=== PATIENT | male | born 1960 | race Caucasian/White ===

== ENCOUNTER 2022-11-19 10:45 | Emergency (ER) | payer SELFPAY ==
[2022-11-19 10:50] VITALS: BP 128/88; PULSE 67; RESP 18; TEMP 36.7; O2SAT 98; BMI 20.7
--- NOTE | 2022-11-19 11:06 | ECG_ITS ---
The [facility] Test Date: 2022-11-19 Pat Name: LUDIVINA LÓPEZ Department: Room: - Gender: Male Health Underwriter: : 1960 Requested By: Order Number: [id number] Reading MD: GREGORY CUNNINGHAM Measurements Intervals [place] Rate: 62 P: 77 MT: 164 QRS: 64 QRSD: 88 T: 67 QT: 426 QTc: 431 Interpretive Statements 1100 Sinus rhythm 3114 Cannot rule out anterior myocardial infarction, age undetermined 9150 abnormal ECG No previous ECG available for comparison Electronically Signed On 11-21-2022 7:15:08 EDT by GREGORY CUNNINGHAM
[2022-11-19 11:21] VITALS: BP 126/81; BP 128/88; BP 138/84; PULSE 65; PULSE 68
[2022-11-19 11:25] LABS: Basophils Absolute Auto 0.1 10^3/uL (0.0-0.1); Basophils Percent Auto 0.6 % (0.2-2.0); Eosinophils Absolute Auto 0.2 10^3/uL (0.0-0.7); Eosinophils Percent Auto 1.9 % (0.9-7.0); Hematocrit 48.3 % (42.0-54.0); Hemoglobin 16.4 g/dL (14.0-18.0); Immature Granulocytes Abs Auto 0.03 10^3/uL (0.00-0.03); Immature Granulocytes Pct Auto 0.4 % (0.0-0.5); Lymphocytes Absolute Auto 1.4 10^3/uL (1.2-3.8); Lymphocytes Percent Auto 18.2 % (20.5-60.0); Mean Corpuscular Hemoglobin 34.1 pg (25.9-34.0); Mean Corpuscular Volume 100.4 fL (80.0-94.0); Monocytes Absolute Auto 0.9 10^3/uL (0.3-0.8); Monocytes Percent Auto 11.5 % (1.7-12.0); Neutrophils Absolute Auto 5.3 10^3/uL (1.4-6.5); Neutrophils Percent Auto 67.4 % (43.0-75.0); Platelet Count 206 10^3/uL (150-450); Red Blood Count 4.81 10^6/uL (4.70-6.10); Red Cell Distribution Width 15.6 % (11.0-15.0); White Blood Count 7.9 10^3/uL (4.0-11.0)
[2022-11-19 11:37] LABS: Alanine Aminotransferase 7 U/L (16-63); Albumin Globulin Ratio 1.1; Albumin Level 3.6 g/dL (3.4-5.0); Alkaline Phosphatase 89 U/L (46-116); Anion Gap 11.4; Aspartate Amino Transferase 16 U/L (15-37); BUN Creatinine Ratio 20.4; Bilirubin Total 1.8 mg/dL (0.2-1.0); Calcium 8.5 mg/dL (8.5-10.1); Carbon Dioxide 29.8 mmol/L (21.0-32.0); Chloride 102 mmol/L (98-107); Estimated GFR (African America >60 (>=60); Estimated GFR (Non-African Ame >60 (>=60); Globulin 3.2 g/dL; Glucose 94 mg/dL (74-106); Potassium 4.2 mmol/L (3.5-5.1); Sodium 139 mmol/L (136-145); Total Protein 6.8 g/dL (6.4-8.2)
--- NOTE | 2022-11-19 11:37 | ED.DIZZY1 ---
HPI - Dizziness General Chief Complaint: Dizziness Stated Complaint: DIZZINESS/HEAD SPINNING Time Seen by Provider: 11/19/22 10:55 Source: patient Mode of arrival: walk-in Limitations: no limitations History of Present Illness HPI Narrative: patient had been off of his BP meds for years. he started to experience dizziness and had episodes of intense spinning and occasionally thought he might pass out. He went to his PCP's office, saw one of the PCP's partners and was restarted on his BP meds. He came in a week later and saw his PCP. When he discussed the dizzy episodes, his PCP told him that he needed to go directly to the ER and be evaluated. The patient told her he had no insurance and did not want to go to the ER. For some reason, he decided to come to the ED today. His dizziness has decreased since re-starting the BP meds. Related Data Home Medications Medication Instructions Recorded Confirmed amlodipine 5 mg tablet 5 mg PO DAILY 11/19/22 11/19/22 doxycycline hyclate 100 mg tablet 100 mg PO Q12H 11/19/22 11/19/22 hydrocortisone 2.5 % topical cream 1 applic topical BID 11/19/22 11/19/22 metoprolol tartrate 25 mg tablet 25 mg PO Q12H 11/19/22 11/19/22 Allergies Allergy/AdvReac Type Severity Reaction Status Date / Time No Known Drug Allergies Allergy Verified 11/19/22 11:00 [facility] Social History Smoking status: Current every day smoker Exam Narrative Exam Narrative: Nurses notes and vital signs reviewed and patient is not hypoxic. afebrile General: Well-appearing and in no apparent distress. Skin: Warm, dry, no pallor noted. Head: Normocephalic, atraumatic. Neck: Supple, non-tender. Eye: Pupils are equal, round and EOMI. No nystagmus. Ears, Nose, Mouth, and Throat: Both TMs and EACs are clear, no nasal mucosal hypertrophy. Oral mucosa is moist, no posterior oropharynx erythema, uvula is mid-line Cardiovascular: Regular Rate and Rhythm without murmur, gallop or rub. Respiratory: No accessory muscle use or respiratory distress. Lungs are clear to auscultation, no wheezing, rales or rhonchi Musculoskeletal: normal ROM, no calf or popliteal tenderness, no lower extremity edema/swelling GI: Abdomen is soft, non-distended. Normal bowel sounds. No masses appreciated. No tenderness to palpation. No rebound, guarding, or rigidity noted. Neurological: A&O x4. No cranial nerve dysfunction observed. No truncal ataxia. Moves all extremities. Sensation intact. head movement does not result in dizziness at this time. Psychiatric: Cooperative and interactive. Normal mood and affect. Constitutional Vital Signs, click to edit/add: Last Vital Signs Temp 98.0 F 11/19/22 10:50 Pulse 65 11/19/22 11:21 Resp 18 11/19/22 10:50 BP 128/88 11/19/22 11:21 Pulse Ox 98 11/19/22 10:50 O2 Del Method Room Air 11/19/22 10:50 Course Vital Signs Vital signs: Vital Signs Temperature 98.0 F 11/19/22 10:50 Pulse Rate 67 11/19/22 10:50 Respiratory Rate 18 11/19/22 10:50 Blood Pressure 128/88 11/19/22 10:50 Pulse Oximetry 98 11/19/22 10:50 Oxygen Delivery Method Room Air 11/19/22 10:50 Temperature 98.0 F 11/19/22 10:50 Pulse Rate 65 11/19/22 11:21 Respiratory Rate 18 11/19/22 10:50 Blood Pressure 128/88 11/19/22 11:21 Pulse Oximetry 98 11/19/22 10:50 Oxygen Delivery Method Room Air 11/19/22 10:50 MDM - Dizziness MDM Narrative Medical decision making narrative: Patient was placed on library monitor and EKG obtained. Blood drawn and sent for evaluation. orthostatic vital signs were obtained and were negative. Workup notable only for slightly elevated BUN at 19. Encouraged the patient to drink plenty of water daily, take his BP meds as prescribed and follow up with his PCP. Differential Diagnosis Differential diagnosis: Likely benign paroxysmal positional vertigo, orthostatic hypotension, vertebral basilar insufficiency, cerebrovascular accident, acute vestibular neuronitis and transient cerebral ischemia Lab Data Attestation: I reviewed the patient's lab results. Labs: Lab Results 11/19/22 Range/Units 11:14 WBC 7.9 (4.0-11.0) 10^3/uL RBC 4.81 (4.70-6.10) 10^6/uL Hgb 16.4 (14.0-18.0) g/dL Hct 48.3 (42.0-54.0) % MCV 100.4 H (80.0-94.0) fL MCH 34.1 H (25.9-34.0) pg MCHC 34.0 (29.9-35.2) g/dL RDW 15.6 H (11.0-15.0) % Plt Count 206 (150-450) 10^3/uL MPV 9.0 L (9.5-13.5) fL Neut % (Auto) 67.4 (43.0-75.0) % Lymph % (Auto) 18.2 L (20.5-60.0) % [place] % (Auto) 11.5 (1.7-12.0) % Eos % (Auto) 1.9 (0.9-7.0) % Baso % (Auto) 0.6 (0.2-2.0) % Neut # (Auto) 5.3 (1.4-6.5) 10^3/uL Lymph # (Auto) 1.4 (1.2-3.8) 10^3/uL [place] # (Auto) 0.9 H (0.3-0.8) 10^3/uL Eos # (Auto) 0.2 (0.0-0.7) 10^3/uL Baso # (Auto) 0.1 (0.0-0.1) 10^3/uL Abs Immat Gran (auto) 0.03 (0.00-0.03) 10^3/uL Imm/Tot Granulo (auto) 0.4 (0.0-0.5) % Sodium 139 (136-145) mmol/L Potassium 4.2 (3.5-5.1) mmol/L Chloride 102 (98-107) mmol/L Carbon Dioxide 29.8 (21.0-32.0) mmol/L Anion Gap 11.4 BUN 19.0 H (7.0-18.0) mg/dL Creatinine 0.93 (0.70-1.30) mg/dL Est GFR ( Amer) >60 (>=60) Est GFR (Non-Af Amer) >60 (>=60) BUN/Creatinine Ratio 20.4 Glucose 94 (74-106) mg/dL Calcium 8.5 (8.5-10.1) mg/dL Total Bilirubin 1.8 H (0.2-1.0) mg/dL AST 16 (15-37) U/L ALT 7 L (16-63) U/L Alkaline Phosphatase 89 (46-116) U/L Total Protein 6.8 (6.4-8.2) g/dL Albumin 3.6 (3.4-5.0) g/dL Globulin 3.2 g/dL Albumin/Globulin Ratio 1.1 ECG Data Attestation: I personally reviewed and interpreted this ECG as follows: Interpretation: EKG interpretation: Emergency Department physician interpretation. Normal sinus rhythm at 62bpm. Normal axis, normal intervals and no ST segment elevation or depression. Discharge Plan Discharge Chief Complaint: Dizziness Clinical Impression: Dizziness, Hypertension Patient Disposition: Home, Self-Care Time of Disposition Decision: 12:19 Prescriptions / Home Meds: No Action amlodipine 5 mg tablet 5 mg PO DAILY doxycycline hyclate 100 mg tablet 100 mg PO Q12H hydrocortisone 2.5 % cream 1 applic TOPICAL BID metoprolol tartrate 25 mg tablet 25 mg PO Q12H Instructions: Hypertension (ED), Dizziness (ED) Stand Alone Forms: Portal Instructions Referrals: Physician,Non-Staff, MD [Primary Care Provider] - 1 week
== END 2022-11-19 12:40 | disposition home or self-care (01) ==
PROVIDERS: Emergency Provider Emergency Medicine
DX: R42 Dizziness and giddiness (principal); I10 Essential (primary) hypertension; Z79.899 Other long term (current) drug therapy; F17.210 Nicotine dependence, cigarettes, uncomplicated
CPT/HCPCS: 36415; 80053; 85025; 93005; 99284

== ENCOUNTER 2022-12-06 06:46 | Emergency (ER) | payer SELFPAY ==
[2022-12-06] VITALS (7 sets, daily range): BP systolic 124; BP diastolic 91; PULSE 52–63; RESP 13–21; TEMP 36.6; O2SAT 93–98; BMI 21.1
--- NOTE | 2022-12-06 07:07 | ED.SOB1 ---
HPI - SOB/Dyspnea General Chief Complaint: Shortness of Breath/Dyspnea Stated Complaint: SHORTNESS OF BREATH Time Seen by Provider: 12/06/22 07:07 Source: patient Mode of arrival: walk-in History of Present Illness HPI Narrative: This document has been composed with a new electronic medical record and Customer[employer]ioging voice recognition system. This document may not fully inaccurately reflect the entirety of the patient encounter.patient's here complaining weakness fatigability and shortness of breath. He says he's been recently diagnosed with chronic obstructive pulmonary disease. He said a female transmission and coordination engineer brought an [id number] inhaler that he has been using. He does not have healthcare insurance until next month. He does not have purulent sputum. He does not shaking chills. He does not have arthralgias myalgias or achiness just he has fatigability he states he was here couple weeks ago and they did blood tests. He has never used an medical inhaler. He is not had any nausea vomiting or diarrhea. Does not have any chest pain. He has never used oxygen at home. 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 He smokes approximately two packs of cigarettes a day and his roommate, also smokes inside his living quarters. Related Data Home Medications Medication Instructions Recorded Confirmed amlodipine 5 mg tablet 5 mg PO DAILY 11/19/22 12/06/22 doxycycline hyclate 100 mg tablet 100 mg PO Q12H 11/19/22 11/19/22 hydrocortisone 2.5 % topical cream 1 applic topical BID 11/19/22 12/06/22 metoprolol tartrate 25 mg tablet 25 mg PO Q12H 11/19/22 12/06/22 Allergies Allergy/AdvReac Type Severity Reaction Status Date / Time No Known Drug Allergies Allergy Verified 12/06/22 06:54 [facility] Social History Smoking status: Current every day smoker Exam Narrative Exam Narrative: patient's awake and alert, in no obvious distress. Complete sentences. Room air pulse oximetry is 92-93 percent. He is afebrile.GENERAL: Well hydrated, appears well, No obvious distress, Awake, Alert, Oriented x 3, Cognition intact HEENT: Normocephalic, No evidence of trauma, injury or infection, airway intact. Conjuntiva normal, no pallor or scleral icterus NECK: Supple, no meningeal irritation, full ROM, non-tender, No JVD CHEST: Symmetrical, no injury, non-tender, RESP: markedly decreased aeration bilaterally with wheezing noted. CARDIO: Normal rate and rhythm, No murmur, Rub, or ectopy during auscultation. ABD: Non-tender, normal BS, no guarding, rebound or rigidity. No pulsatile, masses. No organomegaly NEURO: Neuro at baseline, No motor deficits, CN 2-12 Normal, Mentation inctact. EXTREMITIES: No edema, good tissue perfusion, no venous cords, non-tender SKIN: No petechiae, purpura, or abnormal bruising, warm, dry, no rash Constitutional Vital Signs, click to edit/add: Last Vital Signs Temp 97.8 F 12/06/22 06:49 Pulse 55 L 12/06/22 08:00 Resp 13 12/06/22 08:00 BP 124/91 12/06/22 06:53 Pulse Ox 95 12/06/22 08:00 O2 Del Method Room Air 12/06/22 07:38 O2 Flow Rate 2 12/06/22 07:01 Course Vital Signs Vital signs: Vital Signs Temperature 97.8 F 12/06/22 06:49 Pulse Rate 63 12/06/22 06:49 Respiratory Rate 16 12/06/22 06:49 Blood Pressure 124/91 12/06/22 06:49 Pulse Oximetry 93 L 12/06/22 06:49 Oxygen Delivery Method Room Air 12/06/22 06:49 Temperature 97.8 F 12/06/22 06:49 Pulse Rate 55 L 12/06/22 08:00 Respiratory Rate 13 12/06/22 08:00 Blood Pressure 124/91 12/06/22 06:53 Pulse Oximetry 95 12/06/22 08:00 Oxygen Delivery Method Room Air 12/06/22 07:38 Oxygen Delivery Flow Rate 2 12/06/22 07:01 MDM - SOB/Dyspnea MDM Narrative Medical decision making narrative: patient's chest x-ray and laboratory test do not show any acute process. Laboratory testing several weeks ago on a previous visit was done because he felt dizzy at that time. His pulse oximetry stays 90-93 percent on room air here. We did receive a call from a female transmission and coordination engineer and has stating that he is an alcoholic. she brought him to the hospital and says that she is going tto drop him off at the homeless detention when she picks him up. We will have healthcare social worker to discuss the situation with this man, but he said he is working and is going to get health insurance next month. In the meantime he does and I believe will benefit from a inhaler. Is no evidence of infections or pneumonia. Clearly his financial situation would improve if he would cut back on tobacco and alcohol use. Lab Data Labs: Lab Results 12/06/22 Range/Units 07:41 WBC 5.1 (4.0-11.0) 10^3/uL RBC 4.79 (4.70-6.10) 10^6/uL Hgb 16.5 (14.0-18.0) g/dL Hct 49.2 (42.0-54.0) % MCV 102.7 H (80.0-94.0) fL MCH 34.4 H (25.9-34.0) pg MCHC 33.5 (29.9-35.2) g/dL RDW 15.9 H (11.0-15.0) % Plt Count 242 (150-450) 10^3/uL MPV 8.7 L (9.5-13.5) fL Neut % (Auto) 54.4 (43.0-75.0) % Lymph % (Auto) 27.2 (20.5-60.0) % [place] % (Auto) 11.9 (1.7-12.0) % Eos % (Auto) 5.1 (0.9-7.0) % Baso % (Auto) 1.2 (0.2-2.0) % Neut # (Auto) 2.8 (1.4-6.5) 10^3/uL Lymph # (Auto) 1.4 (1.2-3.8) 10^3/uL [place] # (Auto) 0.6 (0.3-0.8) 10^3/uL Eos # (Auto) 0.3 (0.0-0.7) 10^3/uL Baso # (Auto) 0.1 (0.0-0.1) 10^3/uL Abs Immat Gran (auto) 0.01 (0.00-0.03) 10^3/uL Imm/Tot Granulo (auto) 0.2 (0.0-0.5) % Sodium 145 (136-145) mmol/L Potassium 4.0 (3.5-5.1) mmol/L Chloride 105 (98-107) mmol/L Carbon Dioxide 29.6 (21.0-32.0) mmol/L Anion Gap 14.4 BUN 10.0 (7.0-18.0) mg/dL Creatinine 0.73 (0.70-1.30) mg/dL Est GFR ( Amer) >60 (>=60) Est GFR (Non-Af Amer) >60 (>=60) BUN/Creatinine Ratio 13.7 Glucose 86 (74-106) mg/dL Calcium 8.1 L (8.5-10.1) mg/dL Total Bilirubin 0.5 (0.2-1.0) mg/dL AST 21 (15-37) U/L ALT 19 (16-63) U/L Alkaline Phosphatase 75 (46-116) U/L Troponin I High Sens 5.8 (4.0-76.1) pg/mL Total Protein 6.5 (6.4-8.2) g/dL Albumin 3.2 L (3.4-5.0) g/dL Globulin 3.3 g/dL Albumin/Globulin Ratio 1.0 Discharge Plan Discharge Chief Complaint: Shortness of Breath/Dyspnea Clinical Impression: Chronic obstructive pulmonary disease Patient Disposition: Home, Self-Care Time of Disposition Decision: 08:21 Prescriptions / Home Meds: No Action amlodipine 5 mg tablet 5 mg PO DAILY doxycycline hyclate 100 mg tablet 100 mg PO Q12H hydrocortisone 2.5 % cream 1 applic TOPICAL BID metoprolol tartrate 25 mg tablet 25 mg PO Q12H Additional Instructions: albuterol inhaler when he have wheezing, tobacco cessation information Stand Alone Forms: Portal Instructions Referrals: Physician,Non-Staff, MD [Primary Care Provider] - 1 week
--- NOTE | 2022-12-06 07:24 | ECG_ITS ---
The [facility] [place] Test Date: 2022-12-06 Pat Name: LUDIVINA LÓPEZ Department: Room: - Gender: Male Nitroglycerin Neutralizer: : 1960 Requested By: Order Number: [id number] Reading MD: GREGORY CUNNINGHAM Measurements Intervals [place] Rate: 52 P: 76 CO: 184 QRS: 79 QRSD: 88 T: 55 QT: 450 QTc: 430 Interpretive Statements 1100 Sinus rhythm 8102 Low QRS voltage in chest leads 9120 atypical ECG Compared to ECG 11/19/2022 11:06:58 Low QRS voltage now present Myocardial infarct finding no longer present Electronically Signed On 12-07-2022 7:05:57 EDT by GREGORY CUNNINGHAM
--- NOTE | 2022-12-06 07:24 | XR_ITS ---
The [address] [address] Patient Name: LUDIVINA LÓPEZ MRN: [id number] date: 1960 Sex: M Assigned Patient Location: ER Current Patient Location: Accession/Order Number: [id number] Exam Date: 12/06/2022 07:45 Report Date: 12/06/2022 08:12 At the request of: TOREY FALLON Procedure: XR chest 1V EXAM: XR chest 1V HISTORY: Dyspnea. COMPARISON: None. TECHNIQUE: 2 AP erect portable views of the chest performed. FINDINGS: The trachea is midline. The heart size is normal. There is mild atheromatous calcification at the aortic arch. The hilar shadows are unremarkable. The lung volumes are normal. There is a small calcified granuloma within the right upper chest. The lung wells are otherwise clear. There is no acute osseous abnormality. There are mild degenerative changes at the right acromioclavicular articulation. XR/XR chest 1V IMPRESSION: There is no acute cardiopulmonary process. Electronically authenticated by: HO HERNÁNDEZ Date: 12/06/2022 08:12
[2022-12-06] MEDS: IPRATROPIUM/ALBUTEROL SULFATE 3 ML AMPUL.NEB IH (07:37)
[2022-12-06 07:49] LABS: Basophils Absolute Auto 0.1 10^3/uL (0.0-0.1); Basophils Percent Auto 1.2 % (0.2-2.0); Eosinophils Absolute Auto 0.3 10^3/uL (0.0-0.7); Eosinophils Percent Auto 5.1 % (0.9-7.0); Hematocrit 49.2 % (42.0-54.0); Hemoglobin 16.5 g/dL (14.0-18.0); Immature Granulocytes Abs Auto 0.01 10^3/uL (0.00-0.03); Immature Granulocytes Pct Auto 0.2 % (0.0-0.5); Lymphocytes Absolute Auto 1.4 10^3/uL (1.2-3.8); Lymphocytes Percent Auto 27.2 % (20.5-60.0); Mean Corpuscular HGB Conc 33.5 g/dL (29.9-35.2); Mean Corpuscular Hemoglobin 34.4 pg (25.9-34.0); Mean Corpuscular Volume 102.7 fL (80.0-94.0); Mean Platelet Volume 8.7 fL (9.5-13.5); Monocytes Absolute Auto 0.6 10^3/uL (0.3-0.8); Monocytes Percent Auto 11.9 % (1.7-12.0); Neutrophils Absolute Auto 2.8 10^3/uL (1.4-6.5); Neutrophils Percent Auto 54.4 % (43.0-75.0); Platelet Count 242 10^3/uL (150-450); Red Blood Count 4.79 10^6/uL (4.70-6.10); Red Cell Distribution Width 15.9 % (11.0-15.0); White Blood Count 5.1 10^3/uL (4.0-11.0)
[2022-12-06 08:01] LABS: Alanine Aminotransferase 19 U/L (16-63); Albumin Level 3.2 g/dL (3.4-5.0); Alkaline Phosphatase 75 U/L (46-116); Anion Gap 14.4; Aspartate Amino Transferase 21 U/L (15-37); BUN Creatinine Ratio 13.7; Bilirubin Total 0.5 mg/dL (0.2-1.0); Calcium 8.1 mg/dL (8.5-10.1); Carbon Dioxide 29.6 mmol/L (21.0-32.0); Chloride 105 mmol/L (98-107); Estimated GFR (African America >60 (>=60); Estimated GFR (Non-African Ame >60 (>=60); Globulin 3.3 g/dL; Glucose 86 mg/dL (74-106); Sodium 145 mmol/L (136-145); Total Protein 6.5 g/dL (6.4-8.2)
[2022-12-06 08:03] LABS: Troponin I High Sensitivity 5.8 pg/mL (4.0-76.1)
== END 2022-12-06 09:42 | disposition home or self-care (01) ==
PROVIDERS: Emergency Provider Emergency Medicine Emergency Medical Services
DX: J44.9 Chronic obstructive pulmonary disease, unspecified (principal); F17.210 Nicotine dependence, cigarettes, uncomplicated; Z79.899 Other long term (current) drug therapy
CPT/HCPCS: 36415; 71045; 80053; 84484; 85025; 93005; 94640; 99285

== ENCOUNTER 2023-01-11 13:43 | Outpatient (OUT) | payer OTHER, SELFPAY ==
--- NOTE | 2023-01-11 13:50 | XR_ITS ---
The [place] [id number] Patient Name: LUDIVINA LÓPEZ MRN: [id number] date: 1960 Sex: M Assigned Patient Location: [facility] Current Patient Location: [facility] Accession/Order Number: [id number] Exam Date: 01/11/2023 13:56 Report Date: 01/11/2023 14:15 At the request of: NELY PIPER Procedure: XR toe LT min 2V STUDY: XR toe LT min 2V, [id number] HISTORY: Toe Contusion COMPARISON: None FINDINGS: Obliquely oriented nondisplaced fracture of the medial base of the left first distal phalanx with extension into the interphalangeal joint. No other acute fracture demonstrated. No dislocation or suspicious osseous lesion. Minimal osteophytosis of the first metatarsophalangeal joint. XR/XR toe LT min 2V IMPRESSION: Nondisplaced intra-articular fracture of the base of the left first distal phalanx. Electronically authenticated by: VITA LANDRY Date: 01/11/2023 14:15
== END 2023-01-11 13:44 | disposition home or self-care (01) ==
LOC: RAD 13:45
PROVIDERS: Visit Provider Nurse Practitioner Family
DX: S90.112A Contusion of left great toe without damage to nail, initial encounter (principal); S92.425A Nondisplaced fracture of distal phalanx of left great toe, initial encounter for closed fracture
CPT/HCPCS: 73660

== ENCOUNTER 2024-01-26 18:00 | Observation (INO) | payer MEDICAID, SELFPAY ==
[2024-01-26] VITALS (31 sets, daily range): BP systolic 105–122; BP diastolic 67–76; PULSE 72–102; TEMP 36.4–36.7; O2SAT 51–97; BMI 22.9; BMI 19.9
--- NOTE | 2024-01-26 18:20 | ECG_ITS ---
The [facility] Test Date: 2024-01-26 Pat Name: LUDIVINA LÓPEZ Department: Room: - Gender: Male Rn Infusion: : 1960 Requested By: [id number] Order Number: [id number] Reading MD: GREGORY CUNNINGHAM Measurements Intervals [place] Rate: 90 P: 68 ME: 152 QRS: 72 QRSD: 88 T: 57 QT: 388 QTc: 436 Interpretive Statements 1100 Sinus rhythm 1470 with occasional supraventricular premature complexes [address] elevation [address] & [place] abnormality 9140 abnormal rhythm ECG Compared to ECG 12/06/2022 07:30:53 ST (T wave) deviation now present Electronically Signed On 01-28-2024 12:39:46 EDT by GREGORY CUNNINGHAM
--- NOTE | 2024-01-26 18:20 | CT_ITS ---
The [address] [address] Patient Name: LUDIVINA LÓPEZ MRN: [id number] date: 1960 Sex: M Assigned Patient Location: ER Current Patient Location: ER Accession/Order Number: [id number] Exam Date: 01/26/2024 18:47 Report Date: 01/26/2024 19:14 At the request of: PARISA KING Procedure: CT head/brain wo con EXAM: CT head/brain wo con HISTORY: altered mental status COMPARISON: None. TECHNIQUE: Multiple thin computed tomograms of the head were obtained, with sagittal and coronal reconstructions. Radiation reduction technique and algorithms were utilized during the study. FINDINGS: The ventricles are not enlarged, the lateral ventricles are symmetric and the third ventricles in the midline. The sylvian fissures and cortical sulci appear unremarkable. There is no evidence of an intracranial hemorrhage, mass lesion or apparent acute infarct. Slight patchy diminished attenuation is seen in the periventricular deep white matter. The cerebellum and visualized brainstem are intact. The paranasal sinuses are relatively clear as visualized. The middle ears are aerated. The mastoid sinuses are clear. There is no evidence of an acute skull fracture. CT/CT head/brain wo con IMPRESSION: There is no evidence of an intracranial hemorrhage, mass lesion or apparent acute infarct. Slight patchy diminished attenuation in the periventricular deep white matter suggests early small vessel ischemic changes. The visualized paranasal sinuses are clear. There is no apparent acute skull fracture. Electronically authenticated by: HO BUTLER Date: 01/26/2024 19:14
--- NOTE | 2024-01-26 18:20 | XR_ITS ---
The [address] [address] Patient Name: LUDIVINA LÓPEZ MRN: [id number] date: 1960 Sex: M Assigned Patient Location: ER Current Patient Location: ED.MAIN Accession/Order Number: [id number] Exam Date: 01/26/2024 18:42 Report Date: 01/26/2024 19:11 At the request of: PARISA KING Procedure: XR chest 2V EXAM: XR chest 2V HISTORY: cough COMPARISON: 12/06/2022 TECHNIQUE: Upright PA and lateral chest x-ray FINDINGS: The heart is not enlarged and the vasculature is not distended. No acute infiltrate, effusion or pneumothorax is identified. Flattening of the hemidiaphragms suggest COPD. The osseous structures are grossly intact. XR/XR chest 2V IMPRESSION: No acute infiltrate or evidence of cardiac decompensation. Mild chronic changes are present. The overall appearance of the chest is essentially unchanged. Electronically authenticated by: HO BUTLER Date: 01/26/2024 19:11
--- NOTE | 2024-01-26 18:24 | ED_ITS ---
Documented by User: [email or web address] Jacobo 01/26/24 21:28 HPI - Altered Mental Status General Chief Complaint: Altered Mental Status Stated Complaint: confusion, dizziness Time Seen by Provider: 01/26/24 18:13 Source: patient Mode of arrival: walk-in History of Present Illness HPI narrative: Patient is a 63-year-old male brought in by his roommate for evaluation of altered mentation. The patient has been noted to have see slightly unsteady gait, trouble with his memory and disruption in his daily routine. Patient has not worked for over a year. He drinks alcohol daily. Roommate at bedside notes that he has been waking up and trying to call off work or get himself ready for work even though he does not have a job. Patient notes that he has some room spinning and sometimes sensation of being on a boat. He has a history of chronic loose stools but denies any abdominal pain. He denies any nausea vomiting, chest pain or shortness of breath. Patient does have a semiproductive cough but no reported fever. Patient admits to drinking a couple beers every day. Roommate at bedside states that can be more than this along with hard liquor. He states he has not drank since yesterday. Patient appears in no distress, and readily answers questions at bedside. He is alert to person place and time currently, but roommate states he did not know the year earlier in the day. MD complaint: Reports altered mental status and confusion Onset (ago): day(s) (5+) Timing confirmed by: Reports other (room mate) Consistency of symptoms: getting Worse Context: Reports alcohol abuse; Denies change in medication, trauma, recent fever, diabetes, cancer or seizure disorder Associated symptoms: Reports diarrhea; Denies denies other symptoms, chest pain, cough or nausea/vomiting Related Data Home Medications ?Medication ?Instructions ?Recorded ?Confirmed amlodipine 5 mg tablet 5 mg PO DAILY 11/19/22 12/06/22 doxycycline hyclate 100 mg tablet 100 mg PO Q12H 11/19/22 11/19/22 hydrocortisone 2.5 % topical cream 1 applic topical BID 11/19/22 12/06/22 metoprolol tartrate 25 mg tablet 25 mg PO Q12H 11/19/22 12/06/22 Allergies Allergy/AdvReac Type Severity Reaction Status Date / Time No Known Drug Allergies Allergy Verified 12/06/22 06:54 Review of Systems ROS Status of ROS unobtainable due to mental status Constitutional Reports: fatigue; Denies: fever or chills Eyes Denies: change in vision or blurry vision Ears, nose, mouth, and throat Denies: throat pain Cardiovascular Denies: chest pain Respiratory Reports: cough; Denies: shortness of breath Gastrointestinal Denies: abdominal pain, nausea or vomiting Genitourinary Denies: painful urination Musculoskeletal Denies: back pain, neck pain or extremity pain Integumentary/Breast Denies: rash Neurological Reports: headache, dizziness and vertigo Psychiatric Denies: anxiety Hematologic/Lymphatic Denies: easy bruising Allergic/Immunologic Denies: hives PFSH PFSH Social History Smoking status: Current every day smoker Exam Narrative Exam Narrative: Nurses notes and vital signs reviewed and patient is not hypoxic. General: The patient appears well and in no apparent distress. Patient is resting comfortably on cart. Skin: Warm, dry, no pallor noted. no evidence of Rash Head: Normocephalic, atraumatic Neck: Supple, trachea mid-line, no tenderness, no lymphadenopathy Eye: Pupils are equal, round and reactive to light, EOMI, horizontal nystagmus noted. Ears, Nose, Mouth, and Throat: TM are clear, normal light reflex, oral mucosa is moist, no posterior oropharynx erythema or hypertrophy, uvula is mid-line Cardiovascular: Regular Rate and Rhythm Respiratory: Patient is in no distress, no accessory muscle use, expiratory wheeze and rhonchi in the bases noted. Patient without pleuritic chest pain denies shortness of breath Chest Wall: no tenderness Back: non-tender, no CVA tenderness Musculoskeletal: normal ROM, no tenderness, no swelling GI: Normal bowel sounds, no tenderness to palpation, no masses appreciated. No rebound, guarding, or rigidity noted. Neurological: A&O person, place and time, seems confused on recent events, Psychiatric: Cooperative Constitutional Vital Signs, click to edit/add: Last Vital Signs Temp 98.1 F 01/26/24 18:07 Pulse 93 H 01/26/24 21:23 Resp 19 01/26/24 21:23 BP 108/70 01/26/24 21:01 Pulse Ox 93 L 01/26/24 19:43 O2 Del Method Room Air 01/26/24 18:40 Course Vital Signs Vital signs: Vital Signs Temperature 98.1 F 01/26/24 18:07 Pulse Rate 72 01/26/24 18:07 Respiratory Rate 20 01/26/24 18:07 Blood Pressure 105/72 01/26/24 18:07 Pulse Oximetry 97 01/26/24 18:07 Oxygen Delivery Method Room Air 01/26/24 18:07 Temperature 98.1 F 01/26/24 18:07 Pulse Rate 93 H 01/26/24 21:23 Respiratory Rate 19 01/26/24 21:23 Blood Pressure 108/70 01/26/24 21:01 Pulse Oximetry 93 L 01/26/24 19:43 Oxygen Delivery Method Room Air 01/26/24 18:40 MDM - Altered Mental Status MDM Narrative Medical decision making narrative: Gradual onset confusion over the past 5 days to week, no reported fever or injury. Patient vague on review of systems but notes intermittent diarrhea for some time along with headaches. Patient smokes 1 pack/day and drinks alcohol daily. Reviewed preliminary labs, lactic acid noted to be elevated. Patient be given 1 L IV fluids. Patient up to ambulate to use the restroom, still appears ataxic, patient still pleasantly confused, agreeable to admission for further evaluation of his altered mental status. We have the phone number for his roommate for any additional information. The patient has no other complaints, spoke with nurse practitioner Felipa regarding admission, she is agreeable to an observation stay pending reevaluation, aware of his daily alcohol use. Differential Diagnosis Differential diagnosis: Likely altered mental status Lab Data Attestation: I reviewed the patient's lab results. Labs: Lab Results 01/26/24 Range/Units 18:33 WBC 9.1 (4.0-11.0) 10^3/uL RBC 3.21 L (4.70-6.10) 10^6/uL Hgb 11.6 L (14.0-18.0) g/dL Hct 32.9 L (42.0-54.0) % MCV 102.5 H (80.0-94.0) fL MCH 36.1 H (25.9-34.0) pg MCHC 35.3 H (29.9-35.2) g/dL RDW 14.6 (11.0-15.0) % Plt Count 251 (150-450) 10^3/uL MPV 8.6 L (9.5-13.5) fL Neut % (Auto) 67.6 (43.0-75.0) % Lymph % (Auto) 18.0 L (20.5-60.0) % [place] % (Auto) 12.9 H (1.7-12.0) % Eos % (Auto) 0.6 L (0.9-7.0) % Baso % (Auto) 0.6 (0.2-2.0) % Neut # (Auto) 6.1 (1.4-6.5) 10^3/uL Lymph # (Auto) 1.6 (1.2-3.8) 10^3/uL [place] # (Auto) 1.2 H (0.3-0.8) 10^3/uL Eos # (Auto) 0.1 (0.0-0.7) 10^3/uL Baso # (Auto) 0.1 (0.0-0.1) 10^3/uL Abs Immat Gran (auto) 0.03 (0.00-0.03) 10^3/uL Imm/Tot Granulo (auto) 0.3 (0.0-0.5) % PT 10.9 (9.0-11.6) sec INR 1.03 Sodium 133 L (136-145) mmol/L Potassium 3.3 L (3.5-5.1) mmol/L Chloride 92 L (98-107) mmol/L Carbon Dioxide 30.5 (21.0-32.0) mmol/L Anion Gap 13.8 BUN 16.0 (7.0-18.0) mg/dL Creatinine 1.11 (0.70-1.30) mg/dL Est GFR ( Amer) >60 (>=60 mL/min/1.73m^2) Est GFR (Non-Af Amer) >60 (>=60 mL/min/1.73m^2) BUN/Creatinine Ratio 14.4 Glucose 109 H (74-106) mg/dL Lactate 4.5 H* (0.4-2.0) mmol/L Calcium 8.5 (8.5-10.1) mg/dL Total Bilirubin 2.4 H (0.2-1.0) mg/dL AST 53 H (15-37) U/L ALT 38 (16-63) U/L Alkaline Phosphatase 144 H (46-116) U/L Ammonia 22 (11-32) umol/L Troponin I High Sens 32.6 (4.0-76.1) pg/mL Total Protein 5.8 L (6.4-8.2) g/dL Albumin 2.3 L (3.4-5.0) g/dL Globulin 3.5 g/dL Albumin/Globulin Ratio 0.7 TSH & Free T4 Interp 1.489 (0.358-3.740) uIU/mL Ethanol Quant <3 mg/dL Imaging Data CT scan - head: Radiologist's impression: ITS Impressions Chest X-Ray 01/26/24 18:20 IMPRESSION: No acute infiltrate or evidence of cardiac decompensation. Mild chronic changes are present. The overall appearance of the chest is essentially unchanged. Electronically authenticated by: HO BUTLER Date: 01/26/2024 19:[address] 01/26/24 18:20 IMPRESSION: There is no evidence of an intracranial hemorrhage, mass lesion or apparent acute infarct. Slight patchy diminished attenuation in the periventricular deep white matter suggests early small vessel ischemic changes. The visualized paranasal sinuses are clear. There is no apparent acute skull fracture. Electronically authenticated by: HO BUTLER Date: 01/26/2024 19:14 Abdomen/Pelvis CT 01/26/24 19:22 IMPRESSION: Mild wall thickening of descending colon suggesting inflammatory or infectious colitis. No additional acute abdominal findings. Electronically authenticated by: MYRIAM BEDOYA Date: 01/26/2024 21:28 ECG Data Attestation: I personally reviewed and interpreted this ECG as follows: Interpretation: EKG interpretation: Emergency Department physician interpretation, normal sinus rhythm 90 bpm, flattened t-waves. , normal axis. Discharge Plan Discharge Chief Complaint: Altered Mental Status Clinical Impression: Dizziness, Altered mental status, History of alcohol abuse, Colitis Patient Disposition: Admitted as Observation Time of Disposition Decision: 21:28 Condition: Good Documented by User: Tremaine Arguello MD 01/26/24 21:43 HPI - Altered Mental Status General Chief Complaint: Altered Mental Status Stated Complaint: confusion, dizziness Time Seen by Provider: 01/26/24 18:13 Related Data Home Medications ?Medication ?Instructions ?Recorded ?Confirmed amlodipine 5 mg tablet 5 mg PO DAILY 11/19/22 12/06/22 doxycycline hyclate 100 mg tablet 100 mg PO Q12H 11/19/22 11/19/22 hydrocortisone 2.5 % topical cream 1 applic topical BID 11/19/22 12/06/22 metoprolol tartrate 25 mg tablet 25 mg PO Q12H 11/19/22 12/06/22 Allergies Allergy/AdvReac Type Severity Reaction Status Date / Time No Known Drug Allergies Allergy Verified 12/06/22 06:54 PFSH PFS Social History Smoking status: Current every day smoker Exam Constitutional Vital Signs, click to edit/add: Last Vital Signs Temp 98.1 F 01/26/24 18:07 Pulse 93 H 01/26/24 21:23 Resp 19 01/26/24 21:23 BP 108/70 01/26/24 21:01 Pulse Ox 93 L 01/26/24 19:43 O2 Del Method Room Air 01/26/24 18:40 Course Vital Signs Vital signs: Vital Signs Temperature 98.1 F 01/26/24 18:07 Pulse Rate 72 01/26/24 18:07 Respiratory Rate 20 01/26/24 18:07 Blood Pressure 105/72 01/26/24 18:07 Pulse Oximetry 97 01/26/24 18:07 Oxygen Delivery Method Room Air 01/26/24 18:07 Temperature 98.1 F 01/26/24 18:07 Pulse Rate 93 H 01/26/24 21:23 Respiratory Rate 19 01/26/24 21:23 Blood Pressure 108/70 01/26/24 21:01 Pulse Oximetry 93 L 01/26/24 19:43 Oxygen Delivery Method Room Air 01/26/24 18:40 MDM - Altered Mental Status MDM Narrative Medical decision making narrative: Gradual onset confusion over the past 5 days to week, no reported fever or injury. Patient vague on review of systems but notes intermittent diarrhea for some time along with headaches. Patient smokes 1 pack/day and drinks alcohol d aily. Reviewed preliminary labs, lactic acid noted to be elevated. Patient be given 1 L IV fluids. Patient up to ambulate to use the restroom, still appears ataxic, patient still pleasantly confused, agreeable to admission for further evaluation of his altered mental status. We have the phone number for his roommate for any additional information. The patient has no other complaints, spoke with nurse practitioner Angela regarding admission, she is agreeable to an observation stay pending reevaluation, aware of his daily alcohol use. JK 9:45pm CTA of the abdomen per radiologist suggests colitis and the patient was ordered Cipro and Flagyl. He is being admitted. Lab Data Labs: Lab Results 01/26/24 Range/Units 18:33 WBC 9.1 (4.0-11.0) 10^3/uL RBC 3.21 L (4.70-6.10) 10^6/uL Hgb 11.6 L (14.0-18.0) g/dL Hct 32.9 L (42.0-54.0) % MCV 102.5 H (80.0-94.0) fL MCH 36.1 H (25.9-34.0) pg MCHC 35.3 H (29.9-35.2) g/dL RDW 14.6 (11.0-15.0) % Plt Count 251 (150-450) 10^3/uL MPV 8.6 L (9.5-13.5) fL Neut % (Auto) 67.6 (43.0-75.0) % Lymph % (Auto) 18.0 L (20.5-60.0) % [place] % (Auto) 12.9 H (1.7-12.0) % Eos % (Auto) 0.6 L (0.9-7.0) % Baso % (Auto) 0.6 (0.2-2.0) % Neut # (Auto) 6.1 (1.4-6.5) 10^3/uL Lymph # (Auto) 1.6 (1.2-3.8) 10^3/uL [place] # (Auto) 1.2 H (0.3-0.8) 10^3/uL Eos # (Auto) 0.1 (0.0-0.7) 10^3/uL Baso # (Auto) 0.1 (0.0-0.1) 10^3/uL Abs Immat Gran (auto) 0.03 (0.00-0.03) 10^3/uL Imm/Tot Granulo (auto) 0.3 (0.0-0.5) % PT 10.9 (9.0-11.6) sec INR 1.03 Sodium 133 L (136-145) mmol/L Potassium 3.3 L (3.5-5.1) mmol/L Chloride 92 L (98-107) mmol/L Carbon Dioxide 30.5 (21.0-32.0) mmol/L Anion Gap 13.8 BUN 16.0 (7.0-18.0) mg/dL Creatinine 1.11 (0.70-1.30) mg/dL Est GFR ( Amer) >60 (>=60 mL/min/1.73m^2) Est GFR (Non-Af Amer) >60 (>=60 mL/min/1.73m^2) BUN/Creatinine Ratio 14.4 Glucose 109 H (74-106) mg/dL Lactate 4.5 H* (0.4-2.0) mmol/L Calcium 8.5 (8.5-10.1) mg/dL Total Bilirubin 2.4 H (0.2-1.0) mg/dL AST 53 H (15-37) U/L ALT 38 (16-63) U/L Alkaline Phosphatase 144 H (46-116) U/L Ammonia 22 (11-32) umol/L Troponin I High Sens 32.6 (4.0-76.1) pg/mL Total Protein 5.8 L (6.4-8.2) g/dL Albumin 2.3 L (3.4-5.0) g/dL Globulin 3.5 g/dL Albumin/Globulin Ratio 0.7 TSH & Free T4 Interp 1.489 (0.358-3.740) uIU/mL Ethanol Quant <3 mg/dL Imaging Data CT scan - head: Radiologist's impression: ITS Impressions Chest X-Ray 01/26/24 18:20 IMPRESSION: No acute infiltrate or evidence of cardiac decompensation. Mild chronic changes are present. The overall appearance of the chest is essentially unchanged. Electronically authenticated by: HO BUTLER Date: 01/26/2024 19:[address] 01/26/24 18:20 IMPRESSION: There is no evidence of an intracranial hemorrhage, mass lesion or apparent acute infarct. Slight patchy diminished attenuation in the periventricular deep white matter suggests early small vessel ischemic changes. The visualized paranasal sinuses are clear. There is no apparent acute skull fracture. Electronically authenticated by: HO BUTLER Date: 01/26/2024 19:14 Abdomen/Pelvis CT 01/26/24 19:22 IMPRESSION: Mild wall thickening of descending colon suggesting inflammatory or infectious colitis. No additional acute abdominal findings. Electronically authenticated by: MYRIAM BEDOYA Date: 01/26/2024 21:28 Discharge Plan Discharge Chief Complaint: Altered Mental Status Clinical Impression: Dizziness, Altered mental status, History of alcohol abuse, Colitis Patient Disposition: Admitted as Observation Time of Disposition Decision: 21:28 Condition: Good
[2024-01-26 18:44] LABS: Basophils Absolute Auto 0.1 10^3/uL (0.0-0.1); Basophils Percent Auto 0.6 % (0.2-2.0); Eosinophils Absolute Auto 0.1 10^3/uL (0.0-0.7); Eosinophils Percent Auto 0.6 % (0.9-7.0); Hematocrit 32.9 % (42.0-54.0); Hemoglobin 11.6 g/dL (14.0-18.0); Immature Granulocytes Abs Auto 0.03 10^3/uL (0.00-0.03); Immature Granulocytes Pct Auto 0.3 % (0.0-0.5); Lymphocytes Absolute Auto 1.6 10^3/uL (1.2-3.8); Mean Corpuscular HGB Conc 35.3 g/dL (29.9-35.2); Mean Corpuscular Hemoglobin 36.1 pg (25.9-34.0); Mean Corpuscular Volume 102.5 fL (80.0-94.0); Mean Platelet Volume 8.6 fL (9.5-13.5); Monocytes Absolute Auto 1.2 10^3/uL (0.3-0.8); Monocytes Percent Auto 12.9 % (1.7-12.0); Neutrophils Absolute Auto 6.1 10^3/uL (1.4-6.5); Neutrophils Percent Auto 67.6 % (43.0-75.0); Platelet Count 251 10^3/uL (150-450); Red Blood Count 3.21 10^6/uL (4.70-6.10); Red Cell Distribution Width 14.6 % (11.0-15.0); White Blood Count 9.1 10^3/uL (4.0-11.0)
[2024-01-26 18:56] LABS: Ammonia 22 umol/L (11-32)
[2024-01-26 19:01] LABS: Alanine Aminotransferase 38 U/L (16-63); Albumin Globulin Ratio 0.7; Albumin Level 2.3 g/dL (3.4-5.0); Alkaline Phosphatase 144 U/L (46-116); Anion Gap 13.8; Aspartate Amino Transferase 53 U/L (15-37); BUN Creatinine Ratio 14.4; Bilirubin Total 2.4 mg/dL (0.2-1.0); Calcium 8.5 mg/dL (8.5-10.1); Carbon Dioxide 30.5 mmol/L (21.0-32.0); Chloride 92 mmol/L (98-107); Estimated GFR (African America >60 (>=60 mL/min/1.73m^2); Estimated GFR (Non-African Ame >60 (>=60 mL/min/1.73m^2); Globulin 3.5 g/dL; Glucose 109 mg/dL (74-106); Potassium 3.3 mmol/L (3.5-5.1); Sodium 133 mmol/L (136-145); Total Protein 5.8 g/dL (6.4-8.2)
[2024-01-26 19:06] LABS: INR 1.03; Prothrombin Time 10.9 sec (9.0-11.6)
[2024-01-26] MEDS: THIAMINE HCL 200 MG/2 ML VIAL 100 MG IV (19:06)
[2024-01-26 19:08] LABS: TSH W/ REFLEX FT4 1.489 uIU/mL (0.358-3.740)
[2024-01-26 19:09] LABS: Ethanol <3 mg/dL; Troponin I High Sensitivity 32.6 pg/mL (4.0-76.1)
[2024-01-26 19:11] LABS: Lactate/Lactic Acid 4.5 mmol/L (0.4-2.0)
--- NOTE | 2024-01-26 19:22 | CT_ITS ---
[address] [address] Patient Name: LUDIVINA LÓPEZ MRN: [id number] date: 1960 Sex: M Assigned Patient Location: ER Current Patient Location: .MAIN Accession/Order Number: [id number] Exam Date: 01/26/2024 19:41 Report Date: 01/26/2024 21:28 At the request of: PARISA KING Procedure: CT abdomen pelvis w con EXAM: CT abdomen pelvis w con TECHNIQUE: Axial CT images were obtained of the abdomen and pelvis with intravenous contrast. Sagittal and coronal reformatted images were also obtained. Dose reduction techniques were achieved by using automated exposure control and/or adjustment of mA and/or kV according to patient size and/or use of iterative reconstruction technique. HISTORY: diarrhea, confusion, etoh abuse elevated lactic COMPARISON: None. FINDINGS: Lower chest: The lower lungs are clear. Liver: Significant diffuse decreased attenuation of liver consistent with steatosis. Gallbladder: The gallbladder is unremarkable. There is no intra or extrahepatic biliary dilatation. Pancreas: The pancreas is homogeneous without evidence for mass lesion or inflammation. Spleen: The spleen is unremarkable without evidence for mass lesion. Adrenal glands: The adrenal glands are unremarkable Kidneys and bladder: The kidneys are unremarkable with no evidence for mass lesion, hydronephrosis or inflammation. The ureters demonstrate normal caliber. The urinary bladder is unremarkable. GI Tract: Stomach is unremarkable. Visualized small bowel is unremarkable without evidence for obstruction or active inflammation. The appendix is unremarkable.Mild wall thickening of the descending colon. Reproductive: Unremarkable Lymph nodes: No retroperitoneal or abdominal lymphadenopathy. Vascular: The aorta is not dilated. Mesenteric, renal and iliac arteries are patent. Peritoneum: No free intraperitoneal air or fluid. No acute inflammation. Abdominal wall: No acute findings. Mild degenerative end plate change of the lumbar spine. CT/CT abdomen pelvis w con IMPRESSION: Mild wall thickening of descending colon suggesting inflammatory or infectious colitis. No additional acute abdominal findings. Electronically authenticated by: MYRIAM BEDOYA Date: 01/26/2024 21:28
[2024-01-26] MEDS: 0.9 % SODIUM CHLORIDE 1,000 ML 999 ML IV (20:07)
[2024-01-26] MEDS: METRONIDAZOLE/SODIUM CHLORIDE 500 MG/100 ML PREMIX 100 MG IV (22:26)
[2024-01-26] MEDS: NICOTINE 14 MG PATCH.TD24 TD (23:32)
[2024-01-26] MEDS: 0.9 % SODIUM CHLORIDE 1,000 ML 125 ML IV (23:32)
[2024-01-26] MEDS: CIPROFLOXACIN IN 5 % DEXTROSE 400 MG/200 ML PREMIX 200 MG IV (23:33)
[2024-01-27] MEDS: POTASSIUM CHLORIDE IN WATER 10 MEQ/100 ML PREMIX 100 MEQ IV ×4 (01:36→04:45)
[2024-01-27 04:00] VITALS: BP 136/74; PULSE 80; PULSE 87; TEMP 36.4; O2SAT 94
[2024-01-27 06:13] LABS: Basophils Absolute Auto 0.1 10^3/uL (0.0-0.1); Basophils Percent Auto 0.7 % (0.2-2.0); Eosinophils Absolute Auto 0.1 10^3/uL (0.0-0.7); Hematocrit 27.6 % (42.0-54.0); Hemoglobin 9.6 g/dL (14.0-18.0); Immature Granulocytes Abs Auto 0.02 10^3/uL (0.00-0.03); Immature Granulocytes Pct Auto 0.3 % (0.0-0.5); Lymphocytes Absolute Auto 1.7 10^3/uL (1.2-3.8); Lymphocytes Percent Auto 23.7 % (20.5-60.0); Mean Corpuscular HGB Conc 34.8 g/dL (29.9-35.2); Mean Corpuscular Hemoglobin 35.7 pg (25.9-34.0); Mean Corpuscular Volume 102.6 fL (80.0-94.0); Mean Platelet Volume 8.8 fL (9.5-13.5); Monocytes Absolute Auto 0.9 10^3/uL (0.3-0.8); Monocytes Percent Auto 12.7 % (1.7-12.0); Neutrophils Absolute Auto 4.3 10^3/uL (1.4-6.5); Neutrophils Percent Auto 61.6 % (43.0-75.0); Platelet Count 203 10^3/uL (150-450); Red Blood Count 2.69 10^6/uL (4.70-6.10); Red Cell Distribution Width 14.6 % (11.0-15.0)
[2024-01-27 06:32] LABS: Alanine Aminotransferase 29 U/L (16-63); Albumin Globulin Ratio 0.7; Albumin Level 1.8 g/dL (3.4-5.0); Alkaline Phosphatase 117 U/L (46-116); Anion Gap 12.4; Aspartate Amino Transferase 47 U/L (15-37); BUN Creatinine Ratio 18.7; Bilirubin Total 2.5 mg/dL (0.2-1.0); Calcium 7.4 mg/dL (8.5-10.1); Carbon Dioxide 29.8 mmol/L (21.0-32.0); Chloride 96 mmol/L (98-107); Estimated GFR (African America >60 (>=60 mL/min/1.73m^2); Estimated GFR (Non-African Ame >60 (>=60 mL/min/1.73m^2); Globulin 2.7 g/dL; Glucose 85 mg/dL (74-106); Potassium 3.2 mmol/L (3.5-5.1); Sodium 135 mmol/L (136-145); Total Protein 4.5 g/dL (6.4-8.2)
[2024-01-27 08:00] VITALS: PULSE 80
[2024-01-27] MEDS: 0.9 % SODIUM CHLORIDE 1,000 ML 125 ML IV (08:20)
[2024-01-27] MEDS: METRONIDAZOLE/SODIUM CHLORIDE 500 MG/100 ML PREMIX 100 MG IV (08:21)
[2024-01-27] MEDS: POTASSIUM CHLORIDE 10 MEQ ER TABLET 40 MEQ PO (09:25)
[2024-01-27] MEDS: METOPROLOL TARTRATE 25 MG TABLET PO (09:25)
[2024-01-27] MEDS: CIPROFLOXACIN IN 5 % DEXTROSE 400 MG/200 ML PREMIX 200 MG IV (09:25)
[2024-01-27 11:10] LABS: Percent Iron Saturation 96.1 %
[2024-01-27 11:14] LABS: Lactate/Lactic Acid 1.3 mmol/L (0.4-2.0)
--- NOTE | 2024-01-27 11:26 | PM.HP ---
HPI H&P: HPI History of Present Illness Chief complaint: confusion, dizziness, ams Narrative: HPI and Hospital Course: 63 y o male, with chronic daily, heavy alcohol use, was brought by his friend who lives with him for worsening memory, unsteady gait and intermittent lightheadedness/dizziness. Patient's work up in ED revealed mild elevation in bilirubin/ALPO4, lactic acidosis and anemia. There was also questional colitis on CT abd. He does not have any GI symptoms. CTH did not revealed chronic microvascular changes but no acute stroke/mass noted. Patient tries to underplay his alcohol use but upon questioning admits to drinking 6-10 beers daily along with Liquor. During my conversation with him, I noticed that he was coughing along with wheezing and upon inquiry, he told me that he has emphysema and that's his baseline. He uses inhalers for it. He reports having difficulty with memory for a few months now, that is increasingly getting worse along with unsteady gait brendan right after he gets up and tries to walk. He reports intermittent lightheadedness, also chronic that is postural in nature and worse when he gets up after prolonged period of sitting. He has been ambulating w/o needing help. Noted to have muscle wasting and signs of poor nutrition during exam, likely from excessive alcohol use. He has a PCP that he claims seeing on a regular basis but has not seen a Neurologist recently. Upon arrival, patient's ethanol level was normal and he does not seem to have any signs and symptoms of alcohol withdrawal. Patient was admitted overnight for further work up, was treated with IVF, ciprofloxacin and Flagyl for colitis and dehydration. Patient subjectively feels better. He answered all my questions appropriately but was having difficulty with recalling recent events. He was able to perform simple additions/subtractions. Patient was extensively counseled on risks associated with excessive alcohol use, smoking and it was strongly recommended to him that he stops drinking and smoking. As his symptoms have been ongoing, and not acute, I do not feel there is a need for inpatient work up to ascertain the underlying reason for his poor memory/unsteady gait which seems more than likely to be related to Chronic Alcohol use and possibly B12 deficiency. (Levels ordered but not resulted yet). He is medically stable for discharge on oral Augmentin to finish the treatment course of Colitis. Patient will benefit from outpatient Neurology evaluation and an MRI brain. Patient instructed to return to ED if he develops acute neurological symptoms likely weakness/numbness/inability to speak/comprehend speech. Opioid HPI Opioid Management Most Recent Pain and Opioid Data: Last Pain Scale 0 01/26/24 18:44 01/26/24 Last Pain Assessment 01/27/24 11:43 Last ED Pain Assessment 01/26/24 18:44 Last ORT Total Score 3 01/26/24 22:56 01/26/24 Last ORT Risk Category Low Risk 01/26/24 22:56 01/26/24 Review of Systems ROS Status of ROS 10 or more systems reviewed and unremarkable except as noted in history and below [facility] Medical History (Updated 01/27/24 @ 11:30 by Shaikh Yahir MD) Hypertension ?I10 - Essential (primary) hypertension (ICD-10) Current smoker ?F17.200 - Nicotine dependence, unspecified, uncomplicated (ICD-10) COPD with emphysema ?J43.9 - Emphysema, unspecified (ICD-10) Alcohol use disorder ?F10.90 - Alcohol use, unspecified, uncomplicated (ICD-10) Social History (Updated 01/27/24 @ 11:46 by Shaikh Yahir MD) Within the past year, how often did you have a drink containing alcohol: 4 or more times a week Within the past year, how many standard drinks containing alcohol did you have on a typical day: 7 to 9 Within the past year, how often did you have six or more drinks on one occasion: daily or almost daily Total score: 10 Score interpretation: A score of 4 or more indicates drinking is likely to affect patient's safety. Smoking status: Current every day smoker Non-prescribed substance use: denies use Highest level of school completed/degree received: high school graduate Little interest or pleasure in doing things: not at all Feeling down, depressed, or hopeless: not at all Meds Home Medications and Allergies Home Medications ?Medication ?Instructions ?Recorded ?Confirmed ?Type amlodipine 5 mg tablet 5 mg PO DAILY 11/19/22 12/06/22 History doxycycline hyclate 100 mg tablet 100 mg PO Q12H 11/19/22 11/19/22 History hydrocortisone 2.5 % topical cream 1 applic topical BID 11/19/22 12/06/22 History metoprolol tartrate 25 mg tablet 25 mg PO Q12H 11/19/22 12/06/22 History Allergies Allergy/AdvReac Type Severity Reaction Status Date / Time No Known Drug Allergies Allergy Verified 12/06/22 06:54 Exam Constitutional Vital Signs, click to edit/add: Last Vital Signs Temp 97.5 F L 01/27/24 04:00 Pulse 80 01/27/24 08:00 Resp 20 01/27/24 08:00 BP 136/74 01/27/24 04:00 Pulse Ox 94 L 01/27/24 04:00 O2 Del Method Room Air 01/27/24 04:00 Results Labs Labs: Short CBC 01/26/24 01/27/24 Range/Units 18:33 05:58 WBC 9.1 7.0 (4.0-11.0) 10^3/uL Hgb 11.6 L 9.6 L (14.0-18.0) g/dL Hct 32.9 L 27.6 L (42.0-54.0) % Plt Count 251 203 (150-450) 10^3/uL BMP 01/26/24 01/27/24 18:33 05:58 Sodium 133 L 135 L Potassium 3.3 L 3.2 L Chloride 92 L 96 L Carbon Dioxide 30.5 29.8 BUN 16.0 14.0 Creatinine 1.11 0.75 Glucose 109 H 85 Calcium 8.5 7.4 L Liver Function 01/26/24 01/27/24 Range/Units 18:33 05:58 Total Bilirubin 2.4 H 2.5 H (0.2-1.0) mg/dL AST 53 H 47 H (15-37) U/L ALT 38 29 (16-63) U/L Alkaline Phosphatase 144 H 117 H (46-116) U/L Albumin 2.3 L 1.8 L (3.4-5.0) g/dL Assessment and Plan Assessment and Plan (1) Colitis: Assessment and Plan: treated with Cipro/Flagyl, will d/c on oral Augmentin Patient will benefit from outpatient Colonoscopy. (2) Alcohol use disorder: Assessment and Plan: Counseled on alcohol use, risks associated with it. No signs and symptoms of withdrawal Recommend AA, naltrexone. Defer to PCP. (3) Ataxic gait: Assessment and Plan: Likely due to chronic alcohol use. Chronic, slightly worse than usual. will start on B12 supplementation, levels ordered, not resulted at the time of discharge. Will benefit from outpatient eval by Neurology. (4) Lactic acid acidosis: Assessment and Plan: resolved. (5) Memory impairment of gradual onset: Assessment and Plan: Gradual, progressive. Could be due to chronic alcohol use/B12 deficiency. Will start on B12 supplementation, levels ordered, not resulted at the time of discharge. Will benefit from outpatient eval by Neurology. (6) Megaloblastic anemia due to alcoholism: Assessment and Plan: Will discharge on folate/B12. B12 pending. Folate is low. (7) Alcohol induced fatty liver: Assessment and Plan: Steatosis noted on CT abd. Suspect underlying cirrhosis. Will benefit from outpatient US. (8) COPD with emphysema: Assessment and Plan: Encouraged smoking cessation. Qualifiers: Emphysema type: unspecified Qualified Code(s): J43.9 - Emphysema, unspecified (9) Hypertension: Assessment and Plan: C/w home medications. Qualifiers: Hypertension type: primary hypertension Qualified Code(s): I10 - Essential (primary) hypertension (10) Current smoker: Assessment and Plan: Encouraged smoking cessation.
[2024-01-28 07:07] LABS: Vitamin B12 593 pg/mL (232-1245)
[2024-01-28 08:08] LABS: Transferrin 107 mg/dL (177-329)
--- NOTE | 2024-01-29 12:00 | CM.DCFOLLOWU ---
1st attempt 01/29/24, no answer
--- NOTE | 2024-01-30 12:59 | CM.DCFOLLOWU ---
2nd attempt 01/30/24, no answer
--- NOTE | 2024-01-31 10:24 | CM.DCFOLLOWU ---
3rd attempt 01/31/24, no answer
== END 2024-01-27 12:10 | disposition home or self-care (01) ==
LOC: ER 21:28 → ICU 01-27 11:52
PROVIDERS: Internal Medicine; Personal Emergency Response Attendant; Registered Nurse; Admitting Provider Family Medicine; Emergency Provider Emergency Medicine; Visit Provider Family Medicine
DX: K52.9 Noninfective gastroenteritis and colitis, unspecified (principal); R26.0 Ataxic gait; E87.20 Acidosis, unspecified; D53.1 Other megaloblastic anemias, not elsewhere classified; F10.20 Alcohol dependence, uncomplicated; K70.0 Alcoholic fatty liver; J43.9 Emphysema, unspecified; I10 Essential (primary) hypertension; F17.200 Nicotine dependence, unspecified, uncomplicated; R41.3 Other amnesia; R42 Dizziness and giddiness; Y90.0 Blood alcohol level of less than 20 mg/100 ml
CPT/HCPCS: 36415; 70450; 71046; 74177; 80053; 80320; 82140; 82607; 82728; 82746; 83540; 83550; 83605; 84425; 84443; 84466; 84484; 85025; 85610; 87040; 93005; 96361; 96365; 96366; 96367; 96368; 96375; 96376; 99285; G0378; J0744; J1836; J3411; J3480; Q9967

== ENCOUNTER 2024-03-05 15:44 | Emergency (ER) | payer MEDICAID, SELFPAY ==
[2024-03-05] VITALS (37 sets, daily range): BP systolic 145–176; BP diastolic 84–120; PULSE 82–104; TEMP 36.6; O2SAT 85–99; BMI 22.2
--- NOTE | 2024-03-05 16:05 | ECG_ITS ---
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
--- NOTE | 2024-03-05 16:05 | XR_ITS ---
The [address] [address] Patient Name: LUDIVINA LÓPEZ MRN: [id number] date: 1960 Sex: M Assigned Patient Location: ER Current Patient Location: ER Accession/Order Number: [id number] Exam Date: 03/05/2024 16:48 Report Date: 03/05/2024 17:35 At the request of: MAURY KOHLI Procedure: XR chest 1V EXAM: XR chest 1V at 1641 hours HISTORY: weak COMPARISON: 12/06/2022 TECHNIQUE: AP upright portable chest x-ray FINDINGS: The heart is not enlarged and the vasculature is not distended. No acute infiltrate, effusion or pneumothorax is identified. The osseous structures are grossly intact. XR/XR chest 1V IMPRESSION: No acute infiltrate or evidence of cardiac decompensation. The overall appearance of the chest is essentially unchanged. Electronically authenticated by: HO BUTLER Date: 03/05/2024 17:35
--- NOTE | 2024-03-05 16:05 | CT_ITS ---
The [address] [address] Patient Name: LUDIVINA LÓPEZ MRN: [id number] date: 1960 Sex: M Assigned Patient Location: ER Current Patient Location: ER Accession/Order Number: [id number] Exam Date: 03/05/2024 16:48 Report Date: 03/05/2024 17:33 At the request of: MAURY KOHLI Procedure: CT head/brain wo con EXAM: CT head/brain wo con HISTORY: confusion COMPARISON: 01/26/2024 TECHNIQUE: Multiple thin computed tomograms of the head were obtained, with sagittal and coronal reconstructions. Radiation reduction technique and algorithms were utilized during the study. FINDINGS: The ventricles are not enlarged, the lateral ventricles are symmetric and the third ventricles in the midline. The sylvian fissures and cortical sulci are unremarkable. There is no evidence of an intracranial hemorrhage, mass lesion or apparent acute infarct. Mild patchy diminished attenuation is seen in the deep white matter. The cerebellum and visualized brainstem are intact. The visualized paranasal sinuses are clear. The middle ears are aerated. The mastoid sinuses are clear. There is no apparent acute skull fracture. CT/CT head/brain wo con IMPRESSION: Stable appearance of the brain. There is no evidence of an intracranial hemorrhage, mass lesion or apparent acute infarct. Diminished attenuation the deep white matter indicates early small vessel ischemic changes. If the patient's symptoms persist and further evaluation is clinically indicated, then perhaps an MRI of the brain would be helpful. Electronically authenticated by: HO BUTLER Date: 03/05/2024 17:33
--- NOTE | 2024-03-05 16:10 | ED_ITS ---
HPI HPI - General Adult General Chief complaint: Altered Mental Status Stated complaint: lower pain Time Seen by Provider: 03/05/24 16:03 Source: patient Mode of arrival: Wheelchair History of Present Illness HPI narrative: Patient is a 63-year-old male who is presenting to the ER today with chief complaint of confusion, generalized weakness. Patient is chronic alcoholic. Patient only admits to drinking 3-6 beers a day. Patient was brought by his friend/girlfriend. 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 Patient has not worked as a manual lathe machinist for over 7 days. Patient states he did drink beers this morning, approximately 3 beers. Patient states he smokes 1 to 1.5 packs of cigarettes a day. Patient denies any illicit drug use. Patient lives at home. Patient states he fell several days ago, mechanical fall. Patient currently has no headache. No neck pain. No chest pain or shortness of breath. No abdominal pain nausea vomiting. Patient states that he has not been drinking much water, he does drink.. Patient states has been eating less in the last week. No other acute complaints. All systems are negative except as noted/marked. All systems reviewed and otherwise negative. Nurses note and vital signs reviewed and patient is not hypoxic. General: The patient appears well and in no apparent distress. Patient is resting comfortably on cart. Patient is not toxic, lethargic, or listless Skin: Warm, dry, no pallor noted. There is no rash noted. No petechiae, purpura. Head: Normocephalic, atraumatic Eye: Normal conjunctiva, no drainage, EOMI. PERRL Ears, Nose, Mouth, and Throat: oral mucosa is slightly dry Nares patent. Mouth without vesicles. Cardiovascular: Regular Rate and Rhythm, no murmur, gallop, rub Respiratory: Patient is in no distress, no accessory muscle use, lungs are clear to auscultation, no wheezing, rales or rhonchi Back: non-tender, no CVA tenderness bilaterally to percussion. No CT LS midline pain GI: no tenderness to palpation, no masses appreciated. No rebound, guarding, or rigidity noted. No distention Musculoskeletal: Patient has full range of motion of all of the extremities, no motor, sensory, or focal neurological deficits Neurological: A&O x3, slightly confused at time, patient thinks it is January, then he told me Thanksgiving is coming up this week, and then told me it is the month of January. Normal speech Psychiatric: Cooperative Related Data Home Medications ?Medication ?Instructions ?Recorded ?Confirmed hydrocortisone 2.5 % topical cream 1 applic topical BID 11/19/22 03/05/24 albuterol sulfate 90 mcg/actuation 2 puff inhalation Q4H PRN 03/05/24 03/05/24 aerosol inhaler shortness of breath or wheezing cyanocobalamin (vitamin B-12) 1,000 mcg PO DAILY 03/05/24 03/05/24 1,000 mcg sublingual tablet levothyroxine 50 mcg tablet 50 mcg PO DAILY 03/05/24 03/05/24 Previous Rx's ?Medication ?Instructions ?Recorded folic acid 1 mg tablet 1,000 mcg PO DAILY #30 tabs 01/27/24 magnesium oxide 400 mg PO BID 5 days #10 tabs 03/05/24 potassium chloride 20 mEq 20 meq PO DAILY 7 days #7 tabs 03/05/24 tablet,extended release(part/cryst) Allergies Allergy/AdvReac Type Severity Reaction Status Date / Time No Known Drug Allergies Allergy Verified 12/06/22 06:54 Opioid HPI Opioid Management Most Recent Opioid Data: Last Pain Scale 0 01/26/24 18:44 01/26/24 Last ORT Total Score 3 01/26/24 22:56 01/26/24 Last ORT Risk Category Low Risk 01/26/24 22:56 01/26/24 [facility] Medical History (Updated 03/05/24 @ 19:48 by Oscar Myers MD) Megaloblastic anemia due to alcoholism ?D53.1 - Other megaloblastic anemias, not elsewhere classified (ICD-10) Memory impairment of gradual onset ?R41.3 - Other amnesia (ICD-10) Alcohol induced fatty liver ?K70.0 - Alcoholic fatty liver (ICD-10) Ataxic gait ?R26.0 - Ataxic gait (ICD-10) Colitis ?K52.9 - Noninfective gastroenteritis and colitis, unspecified (ICD-10) History of alcohol abuse ?F10.11 - Alcohol abuse, in remission (ICD-10) Altered mental status ?R41.82 - Altered mental status, unspecified (ICD-10) Dizziness ?R42 - Dizziness and giddiness (ICD-10) Hypertension ?I10 - Essential (primary) hypertension (ICD-10) Current smoker ?F17.200 - Nicotine dependence, unspecified, uncomplicated (ICD-10) COPD with emphysema ?J43.9 - Emphysema, unspecified (ICD-10) Alcohol use disorder ?F10.90 - Alcohol use, unspecified, uncomplicated (ICD-10) Social History (Updated 01/27/24 @ 11:46 by Shaikh Yahir MD) Within the past year, how often did you have a drink containing alcohol: 4 or more times a week Within the past year, how many standard drinks containing alcohol did you have on a typical day: 7 to 9 Within the past year, how often did you have six or more drinks on one occasion: daily or almost daily Total score: 10 Score interpretation: A score of 4 or more indicates drinking is likely to affect patient's safety. Smoking status: Current every day smoker Non-prescribed substance use: denies use Highest level of school completed/degree received: high school graduate Little interest or pleasure in doing things: not at all Feeling down, depressed, or hopeless: not at all Exam Constitutional Vital Signs, click to edit/add: Last Vital Signs Temp 97.8 F 03/05/24 15:48 Pulse 90 03/05/24 18:37 Resp 18 03/05/24 18:37 BP 148/96 H 03/05/24 18:37 Pulse Ox 95 03/05/24 18:37 O2 Del Method Room Air 03/05/24 18:37 Course Vital Signs Vital signs: Vital Signs Temperature 97.8 F 03/05/24 15:48 Pulse Rate 99 H 03/05/24 15:48 Respiratory Rate 16 03/05/24 15:48 Blood Pressure 147/106 H 03/05/24 15:48 Pulse Oximetry 98 03/05/24 15:48 Oxygen Delivery Method Room Air 03/05/24 15:48 Temperature 97.8 F 03/05/24 15:48 Pulse Rate 90 03/05/24 18:37 Respiratory Rate 18 03/05/24 18:37 Blood Pressure 148/96 H 03/05/24 18:37 Pulse Oximetry 95 03/05/24 18:37 Oxygen Delivery Method Room Air 03/05/24 18:37 Medical Decision Making MDM Narrative Medical decision making narrative: Patient only admits to drinking 3-6 beers a day. 1650 Patient potassium was 2.9. Patient will have oral and IV potassium replacement. Patient is receiving 1 L of IV fluids normal saline. Patient's magnesium level was 1.2. Patient was given oral and IV magnesium. Patient also was given another dose of oral magnesium at discharge. Patient was given a prescription for the next 5 to 7 days of potassium and magnesium. Lengthy conversation was had with patient at bedside on the need for alcohol rehabilitation. Patient is to follow-up with PCP for further testing and outpatient treatment. Patient understands importance to drink Gatorade and Powerade, and the malnutrition that he is occurring with chronic alcohol abuse. No acute indication for admission. Patient was also educated on alcohol dementia and most likely cirrhosis that will develop if he continues his alcohol dependence. Patient is a follow-up with PCP and neurology. No questions at discharge. Patient was given oral and IV potassium, oral and IV magnesium and a second dose of magnesium. Patient has been on continuous cardiac monitoring for 5 hours or greater. Critical care time 35 minutes exclusive from separate billable procedures that were performed. The following was considered in the determination of critical care but not limited to the level of medical decision making, intensive cardiac and/or respiratory monitoring, frequent vital sign monitoring, evaluation of laboratory studies, evaluation of radiographic studies, oxygen monitoring, and constant monitoring and speaking to family at bedside Lab Data Labs: Lab Results 03/05/24 03/05/24 Range/Units 16:10 16:19 WBC 7.6 (4.0-11.0) 10^3/uL RBC 3.72 L (4.70-6.10) 10^6/uL Hgb 13.6 L (14.0-18.0) g/dL Hct 38.4 L (42.0-54.0) % MCV 103.2 H (80.0-94.0) fL MCH 36.6 H (25.9-34.0) pg MCHC 35.4 H (29.9-35.2) g/dL RDW 16.1 H (11.0-15.0) % Plt Count 245 (150-450) 10^3/uL MPV 9.3 L (9.5-13.5) fL Neut % (Auto) 74.0 (43.0-75.0) % Lymph % (Auto) 15.1 L (20.5-60.0) % [place] % (Auto) 9.3 (1.7-12.0) % Eos % (Auto) 0.4 L (0.9-7.0) % Baso % (Auto) 0.8 (0.2-2.0) % Neut # (Auto) 5.6 (1.4-6.5) 10^3/uL Lymph # (Auto) 1.2 (1.2-3.8) 10^3/uL [place] # (Auto) 0.7 (0.3-0.8) 10^3/uL Eos # (Auto) 0.0 (0.0-0.7) 10^3/uL Baso # (Auto) 0.1 (0.0-0.1) 10^3/uL Abs Immat Gran (auto) 0.03 (0.00-0.03) 10^3/uL Imm/Tot Granulo (auto) 0.4 (0.0-0.5) % PT 11.1 (9.0-11.6) sec INR 1.05 VBG pH 7.550 H (7.330-7.430) VBG pCO2 45.0 (40.0-52.0) mmHg Sodium 137 (136-145) mmol/L Potassium 2.9 L* (3.5-5.1) mmol/L Chloride 93 L (98-107) mmol/L Carbon Dioxide 34.8 H (21.0-32.0) mmol/L Anion Gap 12.1 BUN 9.0 (7.0-18.0) mg/dL Creatinine 0.98 (0.70-1.30) mg/dL Est GFR ( Amer) >60 (>=60 mL/min/1.73m^2) Est GFR (Non-Af Amer) >60 (>=60 mL/min/1.73m^2) BUN/Creatinine Ratio 9.2 Glucose 108 H (74-106) mg/dL Lactate 2.8 H* (0.4-2.0) mmol/L Calcium 8.7 (8.5-10.1) mg/dL Magnesium 1.2 L (1.8-2.4) mg/dL Total Bilirubin 2.6 H (0.2-1.0) mg/dL AST 119 H (15-37) U/L ALT 77 H (16-63) U/L Alkaline Phosphatase 145 H (46-116) U/L Ammonia <10 L (11-32) umol/L Total Creatine Kinase 39 (39-308) U/L Troponin I High Sens 13.3 (4.0-76.1) pg/mL Total Protein 6.0 L (6.4-8.2) g/dL Albumin 2.6 L (3.4-5.0) g/dL Globulin 3.4 g/dL Albumin/Globulin Ratio 0.8 TSH 1.662 (0.358-3.740) uIU/mL Salicylates 6.3 (<=19.9) mg/dL Acetaminophen <2.0 L (10.0-30.0) ug/mL Ethanol Quant <3 mg/dL POC Glucose 85 (74-106) mg/dL ECG Data Attestation: I personally reviewed and interpreted this ECG as follows: (EKG interpretation. Normal sinus rhythm at 94 beats a minute. Normal axis deviation. No acute ST elevation, no acute ectopy. QTc of 430) Discharge Plan Discharge Chief Complaint: Altered Mental Status Clinical Impression: Dehydration, Alcoholic hepatitis, Hypokalemia, Alcohol dependence, Fatigue, Malnutrition Patient Disposition: Home, Self-Care Time of Disposition Decision: 19:46 Condition: Fair Prescriptions / Home Meds: New magnesium oxide 400 mg magnesium tablet 400 mg PO BID 5 Days Qty: 10 0RF potassium chloride 20 mEq tablet,ER particles/crystals 20 meq PO DAILY 7 Days Qty: 7 0RF No Action hydrocortisone 2.5 % cream 1 applic TOPICAL BID albuterol sulfate 90 mcg/actuation HFA aerosol inhaler 2 puff INHALATION Q4H PRN (Reason: shortness of breath or wheezing) cyanocobalamin (vitamin B-12) 1,000 mcg tablet, sublingual 1,000 mcg PO DAILY levothyroxine 50 mcg tablet 50 mcg PO DAILY folic acid 1 mg tablet 1,000 mcg PO DAILY Qty: 30 0RF Print Language: Faroese Instructions: Dehydration (ED), High Protein Diet (ED), Malnutrition (DC), Hypokalemia (ED), Abuse of Alcohol (ED), Alcohol Dependence (ED), Alcohol Use Disorder (ED), Alcoholic Hepatitis (ED) Additional Instructions: You need to stop drinking alcohol. Please speak to your PCP, being contact with social workers, rn case manager hospice, and you need to go to rehabilitation for alcoholism. 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 You have chronic alcoholic hepatitis, is extremely concerning in the future for you to have cirrhosis secondary to longstanding history of alcohol abuse. Increase fluids, Gatorade, Powerade or water. Follow-up with PCP for reevaluation and further recommendation for rehabilitation and treatment plans, return back to the ER for any other acute concerns. Referrals: Physician,Non-Staff, MD [Primary Care Provider] - 1 week
[2024-03-05 16:19] LABS: Basophils Absolute Auto 0.1 10^3/uL (0.0-0.1); Basophils Percent Auto 0.8 % (0.2-2.0); Eosinophils Percent Auto 0.4 % (0.9-7.0); Hematocrit 38.4 % (42.0-54.0); Hemoglobin 13.6 g/dL (14.0-18.0); Immature Granulocytes Abs Auto 0.03 10^3/uL (0.00-0.03); Immature Granulocytes Pct Auto 0.4 % (0.0-0.5); Lymphocytes Absolute Auto 1.2 10^3/uL (1.2-3.8); Lymphocytes Percent Auto 15.1 % (20.5-60.0); Mean Corpuscular HGB Conc 35.4 g/dL (29.9-35.2); Mean Corpuscular Hemoglobin 36.6 pg (25.9-34.0); Mean Corpuscular Volume 103.2 fL (80.0-94.0); Mean Platelet Volume 9.3 fL (9.5-13.5); Monocytes Absolute Auto 0.7 10^3/uL (0.3-0.8); Monocytes Percent Auto 9.3 % (1.7-12.0); Neutrophils Absolute Auto 5.6 10^3/uL (1.4-6.5); Platelet Count 245 10^3/uL (150-450); Red Blood Count 3.72 10^6/uL (4.70-6.10); Red Cell Distribution Width 16.1 % (11.0-15.0); White Blood Count 7.6 10^3/uL (4.0-11.0)
[2024-03-05 16:20] LABS: Glucometer 85 mg/dL (74-106)
[2024-03-05 16:35] LABS: INR 1.05; Prothrombin Time 11.1 sec (9.0-11.6)
[2024-03-05] MEDS: 0.9 % SODIUM CHLORIDE 1,000 ML 1000 ML IV (16:37)
[2024-03-05 16:42] LABS: Ammonia <10 umol/L (11-32)
[2024-03-05 16:46] LABS: Acetaminophen <2.0 ug/mL (10.0-30.0); Alanine Aminotransferase 77 U/L (16-63); Albumin Globulin Ratio 0.8; Albumin Level 2.6 g/dL (3.4-5.0); Alkaline Phosphatase 145 U/L (46-116); Anion Gap 12.1; Aspartate Amino Transferase 119 U/L (15-37); BUN Creatinine Ratio 9.2; Bilirubin Total 2.6 mg/dL (0.2-1.0); Calcium 8.7 mg/dL (8.5-10.1); Carbon Dioxide 34.8 mmol/L (21.0-32.0); Chloride 93 mmol/L (98-107); Creatine Kinase 39 U/L (39-308); Estimated GFR (African America >60 (>=60 mL/min/1.73m^2); Estimated GFR (Non-African Ame >60 (>=60 mL/min/1.73m^2); Globulin 3.4 g/dL; Glucose 108 mg/dL (74-106); Salicylate 6.3 mg/dL (<=19.9); Sodium 137 mmol/L (136-145); Thyroid Stimulating Hormone 1.662 uIU/mL (0.358-3.740); Troponin I High Sensitivity 13.3 pg/mL (4.0-76.1)
[2024-03-05 16:48] LABS: Magnesium 1.2 mg/dL (1.8-2.4)
[2024-03-05 16:49] LABS: Ethanol <3 mg/dL
[2024-03-05 16:50] LABS: Lactate/Lactic Acid 2.8 mmol/L (0.4-2.0); Potassium 2.9 mmol/L (3.5-5.1)
[2024-03-05] MEDS: POTASSIUM CHLORIDE 40 MEQ IN 0.9%NACL 1,000 ML 250 ML IV (17:21)
[2024-03-05] MEDS: POTASSIUM BICARBONATE/CIT 25 MEQ TABLET EFF 50 MEQ PO (17:21)
[2024-03-05] MEDS: MAGNESIUM OXIDE 400 MG TABLET 800 MG PO ×2 (18:07→20:51)
[2024-03-05] MEDS: MAGNESIUM SULFATE IN WATER 2 GM/50 ML PREMIX 3.3 GM IV (18:07)
[2024-03-05 20:26] LABS: Lactate/Lactic Acid 2.1 mmol/L (0.4-2.0)
== END 2024-03-05 21:02 | disposition home or self-care (01) ==
PROVIDERS: Emergency Provider Emergency Medicine; PCP Family Medicine
DX: E87.6 Hypokalemia (principal); F10.20 Alcohol dependence, uncomplicated; Y90.0 Blood alcohol level of less than 20 mg/100 ml; F17.210 Nicotine dependence, cigarettes, uncomplicated; E86.0 Dehydration; R53.83 Other fatigue; K70.10 Alcoholic hepatitis without ascites; E46 Unspecified protein-calorie malnutrition; Z68.22 Body mass index [BMI] 22.0-22.9, adult
CPT/HCPCS: 36415; 70450; 71045; 80053; 80179; 80307; 80320; 80329; 82140; 82550; 82800; 83605; 83735; 84443; 84484; 85025; 85610; 93005; 96361; 96365; 96366; 96368; 99285; J3475

== ENCOUNTER 2024-04-03 23:16 | Emergency (ER) | payer MEDICAID, SELFPAY ==
[2024-04-03 23:26] VITALS: BP 151/113; PULSE 80; TEMP 36.4; O2SAT 100
--- NOTE | 2024-04-03 23:51 | XR_ITS ---
The [address] [address] Patient Name: LUDIVINA LÓPEZ MRN: [id number] date: 1960 Sex: M Assigned Patient Location: ER Current Patient Location: Accession/Order Number: [id number] Exam Date: 04/03/2024 23:56 Report Date: 04/04/2024 00:53 At the request of: TESFAYE MARION Procedure: XR chest 1V SINGLE VIEW CHEST: 04/03/2024 11:56 PM EST CLINICAL HISTORY:shortness of breath COMPARISONS: 03/05/2024 TECHNIQUE: Single frontal view of the chest, utilizing portable technique. Portable radiography should be considered a technically compromised study. Strongly consider dedicated PA and lateral chest radiographs, as clinically indicated. FINDINGS: LINES AND TUBES: Cardiac monitoring leads and wires overlie the patient. CARDIAC SILHOUETTE: Within normal limits. MEDIASTINAL AND HILAR CONTOUR: Within normal limits. PULMONARY PARENCHYMA AND PLEURA: No consolidation, edema, effusion, or pneumothorax. Stable mild bilateral lung hyperinflation. OSSEOUS STRUCTURES:Nothing significant. OTHER COMMENTS:None. XR/XR chest 1V IMPRESSION: Stable chest, with no acute radiographic findings. This report was generated with voice recognition software. Effort has been made to ensure accuracy of this report, however, occasional wording errors may persist. Please contact our office with any questions. Electronically authenticated by: JEREL TALAMANTES Date: 04/04/2024 00:53
--- NOTE | 2024-04-03 23:51 | ECG_ITS ---
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
--- NOTE | 2024-04-03 23:52 | ED.GENADUL1 ---
HPI HPI - General Adult General Chief complaint: Shortness of Breath/Dyspnea Stated complaint: FALL, SOB, DIZZINESS Time Seen by Provider: 04/03/24 23:35 Source: patient Mode of arrival: Wheelchair Limitations: no limitations History of Present Illness HPI narrative: Pt complains of intermittent dizziness, frequent falls for the last week. He is a chronic alcoholic with poor nutrition. he did not realize that it was Efe today and said that he last ate around 11am. No recent cough or cold symptoms. No fever or chills. No vomiting or diarrhea. Related Data Home Medications ?Medication ?Instructions ?Recorded ?Confirmed hydrocortisone 2.5 % topical cream 1 applic topical BID 11/19/22 03/05/24 albuterol sulfate 90 mcg/actuation 2 puff inhalation Q4H PRN 03/05/24 03/05/24 aerosol inhaler shortness of breath or wheezing cyanocobalamin (vitamin B-12) 1,000 mcg PO DAILY 03/05/24 03/05/24 1,000 mcg sublingual tablet levothyroxine 50 mcg tablet 50 mcg PO DAILY 03/05/24 03/05/24 Previous Rx's ?Medication ?Instructions ?Recorded folic acid 1 mg tablet 1,000 mcg PO DAILY #30 tabs 01/27/24 magnesium oxide 400 mg PO BID 5 days #10 tabs 03/05/24 potassium chloride 20 mEq 20 meq PO DAILY 7 days #7 tabs 03/05/24 tablet,extended release(part/cryst) Allergies Allergy/AdvReac Type Severity Reaction Status Date / Time No Known Drug Allergies Allergy Verified 04/03/24 23:34 Opioid HPI Opioid Management Most Recent Opioid Data: Last Pain Scale 0 01/26/24 18:44 01/26/24 Last ORT Total Score 3 01/26/24 22:56 01/26/24 Last ORT Risk Category Low Risk 01/26/24 22:56 01/26/24 [facility] PFS Medical History (Updated 04/04/24 @ 00:56 by Kristian Juarez) Megaloblastic anemia due to alcoholism ?D53.1 - Other megaloblastic anemias, not elsewhere classified (ICD-10) Memory impairment of gradual onset ?R41.3 - Other amnesia (ICD-10) Alcohol induced fatty liver ?K70.0 - Alcoholic fatty liver (ICD-10) Ataxic gait ?R26.0 - Ataxic gait (ICD-10) Colitis ?K52.9 - Noninfective gastroenteritis and colitis, unspecified (ICD-10) History of alcohol abuse ?F10.11 - Alcohol abuse, in remission (ICD-10) Altered mental status ?R41.82 - Altered mental status, unspecified (ICD-10) Dizziness ?R42 - Dizziness and giddiness (ICD-10) Hypertension ?I10 - Essential (primary) hypertension (ICD-10) Current smoker ?F17.200 - Nicotine dependence, unspecified, uncomplicated (ICD-10) COPD with emphysema ?J43.9 - Emphysema, unspecified (ICD-10) Alcohol use disorder ?F10.90 - Alcohol use, unspecified, uncomplicated (ICD-10) Social History (Updated 01/27/24 @ 11:46 by Shaikh Yahir MD) Within the past year, how often did you have a drink containing alcohol: 4 or more times a week Within the past year, how many standard drinks containing alcohol did you have on a typical day: 7 to 9 Within the past year, how often did you have six or more drinks on one occasion: daily or almost daily Total score: 10 Score interpretation: A score of 4 or more indicates drinking is likely to affect patient's safety. Smoking status: Current every day smoker Non-prescribed substance use: denies use Highest level of school completed/degree received: high school graduate Little interest or pleasure in doing things: not at all Feeling down, depressed, or hopeless: not at all Exam Narrative Exam Narrative: Nurses notes and vital signs reviewed and patient is not hypoxic. BP elevated afebrile General: Well-appearing and in no apparent distress. Skin: Warm, dry, no pallor noted. Head: Normocephalic, atraumatic. Neck: Supple, non-tender. Eye: Pupils are equal, round and EOMI. No scleral icterus. Ears, Nose, Mouth, and Throat: TM are clear, no posterior oropharynx erythema or nasal mucosal hypertrophy, uvula is mid-line Oral mucosa is moist Cardiovascular: Regular Rate and Rhythm without murmur, gallop or rub. Respiratory: No accessory muscle use or respiratory distress. Lungs are clear to auscultation, no wheezing, rales or rhonchi Chest Wall: no tenderness Back: No midline thoracic or lumbar vertebral tenderness. No CVA tenderness Musculoskeletal: normal ROM, no calf or popliteal tenderness, no lower extremity edema/swelling GI: Abdomen is soft, non-distended. Normal bowel sounds. No masses appreciated. No tenderness to palpation. No rebound, guarding, or rigidity noted. Neurological: A&O x4. No cranial nerve dysfunction observed. No truncal ataxia. Moves all extremities. Sensation intact. Psychiatric: Cooperative and interactive. Normal mood and affect. Constitutional Vital Signs, click to edit/add: Last Vital Signs Temp 97.6 F 04/03/24 23:26 Pulse 79 04/04/24 01:10 Resp 12 04/04/24 01:10 BP 170/108 H 04/04/24 01:58 Pulse Ox 97 04/04/24 01:10 O2 Del Method Room Air 04/03/24 23:26 Course Vital Signs Vital signs: Vital Signs Temperature 97.6 F 04/03/24 23:26 Pulse Rate 80 04/03/24 23:26 Respiratory Rate 14 04/03/24 23:26 Blood Pressure 151/113 H 04/03/24 23:26 Pulse Oximetry 100 04/03/24 23:26 Oxygen Delivery Method Room Air 04/03/24 23:26 Temperature 97.6 F 04/03/24 23:26 Pulse Rate 79 04/04/24 01:10 Respiratory Rate 12 04/04/24 01:10 Blood Pressure 170/108 H 04/04/24 01:58 Pulse Oximetry 97 04/04/24 01:10 Oxygen Delivery Method Room Air 04/03/24 23:26 Medical Decision Making MDM Narrative Medical decision making narrative: Patient was placed on alarm security or surveillance monitor and EKG obtained. Blood drawn and sent for evaluation. Patient was given food to eat and something to drink. Potassium low at 3.0 - he was given oral potassium in the ED. CXR and EKG unremarkable. White blood cell count normal, hemoglobin shows mild anemia. Aside from the hypokalemia, CMP showed normal chloride, minimally elevated BUN with normal creatinine, slightly elevated AST and ALT along with slightly elevated total bilirubin. Protein and albumin are low. Results reviewed with the patient. He was discharged home with instructions to take his meds as prescribed, including his potassium. PCP follow up recommended. Lab Data Lab results reviewed: Yes I reviewed the patient's lab results Labs: Lab Results 12/26/24 Range/Units 00:25 WBC 6.9 (4.0-11.0) 10^3/uL RBC 3.22 L (4.70-6.10) 10^6/uL Hgb 11.4 L (14.0-18.0) g/dL Hct 33.3 L (42.0-54.0) % MCV 103.4 H (80.0-94.0) fL MCH 35.4 H (25.9-34.0) pg MCHC 34.2 (29.9-35.2) g/dL RDW 14.6 (11.0-15.0) % Plt Count 272 (150-450) 10^3/uL MPV 9.6 (9.5-13.5) fL Neut % (Auto) 74.7 (43.0-75.0) % Lymph % (Auto) 16.5 L (20.5-60.0) % Dare % (Auto) 7.1 (1.7-12.0) % Eos % (Auto) 0.4 L (0.9-7.0) % Baso % (Auto) 0.7 (0.2-2.0) % Neut # (Auto) 5.1 (1.4-6.5) 10^3/uL Lymph # (Auto) 1.1 L (1.2-3.8) 10^3/uL Dare # (Auto) 0.5 (0.3-0.8) 10^3/uL Eos # (Auto) 0.0 (0.0-0.7) 10^3/uL Baso # (Auto) 0.1 (0.0-0.1) 10^3/uL Abs Immat Gran (auto) 0.04 H (0.00-0.03) 10^3/uL Imm/Tot Granulo (auto) 0.6 H (0.0-0.5) % Sodium 140 (136-145) mmol/L Potassium 3.0 L (3.5-5.1) mmol/L Chloride 99 (98-107) mmol/L Carbon Dioxide 35.5 H (21.0-32.0) mmol/L Anion Gap 8.5 BUN 20.0 H (7.0-18.0) mg/dL Creatinine 1.19 (0.70-1.30) mg/dL Est GFR ( Amer) >60 (>=60 mL/min/1.73m^2) Est GFR (Non-Af Amer) >60 (>=60 mL/min/1.73m^2) BUN/Creatinine Ratio 16.8 Glucose 145 H (74-106) mg/dL Calcium 8.5 (8.5-10.1) mg/dL Total Bilirubin 1.3 H (0.2-1.0) mg/dL AST 86 H (15-37) U/L ALT 68 H (16-63) U/L Alkaline Phosphatase 88 (46-116) U/L Troponin I High Sens 21.7 (4.0-76.1) pg/mL NT-Pro-B Natriuret Pep 1265.0 H* (<=900.0) pg/mL Total Protein 6.2 L (6.4-8.2) g/dL Albumin 2.9 L (3.4-5.0) g/dL Globulin 3.3 g/dL Albumin/Globulin Ratio 0.9 Imaging Data Chest x-ray: Radiologist's impression: ITS Impressions Chest X-Ray 04/03/24 23:51 IMPRESSION: Stable chest, with no acute radiographic findings. This report was generated with voice recognition software. Effort has been made to ensure accuracy of this report, however, occasional wording errors may persist. Please contact our office with any questions. Electronically authenticated by: JEREL TALAMANTES Date: 04/04/2024 00:53 ECG Data Attestation: I personally reviewed and interpreted this ECG as follows: Interpretation: EKG interpretation: Emergency Department physician interpretation. Normal sinus rhythm at 84bpm. Normal axis, normal intervals and non-specific ST-T changes. No ST segment elevation or depression. Discharge Plan Discharge Chief Complaint: Shortness of Breath/Dyspnea Clinical Impression: Acute hypokalemia, Chronic obstructive pulmonary disease, HTN (hypertension) Patient Disposition: Home, Self-Care Time of Disposition Decision: 00:54 Prescriptions / Home Meds: No Action hydrocortisone 2.5 % cream 1 applic TOPICAL BID albuterol sulfate 90 mcg/actuation HFA aerosol inhaler 2 puff INHALATION Q4H PRN (Reason: shortness of breath or wheezing) cyanocobalamin (vitamin B-12) 1,000 mcg tablet, sublingual 1,000 mcg PO DAILY levothyroxine 50 mcg tablet 50 mcg PO DAILY magnesium oxide 400 mg magnesium tablet 400 mg PO BID 5 Days Qty: 10 0RF potassium chloride 20 mEq tablet,ER particles/crystals 20 meq PO DAILY 7 Days Qty: 7 0RF folic acid 1 mg tablet 1,000 mcg PO DAILY Qty: 30 0RF Print Language: Bengali Instructions: Hypokalemia (ED), COPD (Chronic Obstructive Pulmonary Disease) (ED), Hypertension (ED) Referrals: Julio C Reyes MD [Primary Care Provider] - 1 week Discharge Date/Time: 04/04/24 02:41
--- NOTE | 2024-04-03 23:52 | PC.NURSE ---
this patient complains of dizziness and a cough and shortness of breath onset 4 days ago
[2024-04-04 00:02] VITALS: BP 154/110; PULSE 78; O2SAT 98
[2024-04-04 00:34] LABS: Basophils Absolute Auto 0.1 10^3/uL (0.0-0.1); Basophils Percent Auto 0.7 % (0.2-2.0); Eosinophils Percent Auto 0.4 % (0.9-7.0); Hematocrit 33.3 % (42.0-54.0); Hemoglobin 11.4 g/dL (14.0-18.0); Immature Granulocytes Abs Auto 0.04 10^3/uL (0.00-0.03); Immature Granulocytes Pct Auto 0.6 % (0.0-0.5); Lymphocytes Absolute Auto 1.1 10^3/uL (1.2-3.8); Lymphocytes Percent Auto 16.5 % (20.5-60.0); Mean Corpuscular HGB Conc 34.2 g/dL (29.9-35.2); Mean Corpuscular Hemoglobin 35.4 pg (25.9-34.0); Mean Corpuscular Volume 103.4 fL (80.0-94.0); Mean Platelet Volume 9.6 fL (9.5-13.5); Monocytes Absolute Auto 0.5 10^3/uL (0.3-0.8); Monocytes Percent Auto 7.1 % (1.7-12.0); Neutrophils Absolute Auto 5.1 10^3/uL (1.4-6.5); Neutrophils Percent Auto 74.7 % (43.0-75.0); Platelet Count 272 10^3/uL (150-450); Red Blood Count 3.22 10^6/uL (4.70-6.10); Red Cell Distribution Width 14.6 % (11.0-15.0); White Blood Count 6.9 10^3/uL (4.0-11.0)
[2024-04-04 00:49] LABS: Alanine Aminotransferase 68 U/L (16-63); Albumin Globulin Ratio 0.9; Albumin Level 2.9 g/dL (3.4-5.0); Alkaline Phosphatase 88 U/L (46-116); Anion Gap 8.5; Aspartate Amino Transferase 86 U/L (15-37); BUN Creatinine Ratio 16.8; Bilirubin Total 1.3 mg/dL (0.2-1.0); Calcium 8.5 mg/dL (8.5-10.1); Carbon Dioxide 35.5 mmol/L (21.0-32.0); Chloride 99 mmol/L (98-107); Estimated GFR (African America >60 (>=60 mL/min/1.73m^2); Estimated GFR (Non-African Ame >60 (>=60 mL/min/1.73m^2); Globulin 3.3 g/dL; Glucose 145 mg/dL (74-106); Sodium 140 mmol/L (136-145); Total Protein 6.2 g/dL (6.4-8.2)
[2024-04-04 00:56] VITALS: BP 148/96; PULSE 81; O2SAT 97
[2024-04-04 00:56] LABS: Troponin I High Sensitivity 21.7 pg/mL (4.0-76.1)
[2024-04-04 01:10] VITALS: BP 146/103; PULSE 79; O2SAT 97
[2024-04-04] MEDS: POTASSIUM CHLORIDE 10 MEQ ER TABLET 40 MEQ PO (01:12)
[2024-04-04 01:58] VITALS: BP 170/108
--- NOTE | 2024-04-04 02:02 | PC.NURSE ---
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 she said that she is on her way and i informed this patient and he will remain in the room until she arrives
--- NOTE | 2024-04-04 02:39 | PC.NURSE ---
i gave verbal and paper discharge papers to this patient and his sister, and both said yes to understanding these discharge orders. at time of discharge this patient nor his sister voices no concerns and this patient shows no sign sof distress
== END 2024-04-04 02:41 | disposition home or self-care (01) ==
PROVIDERS: Emergency Provider Emergency Medicine; PCP Family Medicine
DX: E87.6 Hypokalemia (principal); J44.9 Chronic obstructive pulmonary disease, unspecified; I10 Essential (primary) hypertension; Z91.81 History of falling; F17.200 Nicotine dependence, unspecified, uncomplicated; F10.90 Alcohol use, unspecified, uncomplicated
CPT/HCPCS: 36415; 71045; 80053; 83880; 84484; 85025; 93005; 99285

== ENCOUNTER 2024-04-23 17:27 | Emergency (ER) | payer MEDICAID, SELFPAY ==
[2024-04-23 17:28] VITALS: BP 164/96; PULSE 83; TEMP 36.7; O2SAT 100; BMI 22.2
--- NOTE | 2024-04-23 17:29 | ED.GENADUL1 ---
HPI HPI - General Adult General Chief complaint: Fall Stated complaint: fall Time Seen by Provider: 04/23/24 17:27 History of Present Illness HPI narrative: 63-year-old male presents to the emergency department for injury to his face. He apparently fell at the [facility] where he stays, in his room and hit his face. No other injury was sustained. Complains of pain to his face but nowhere else on his body. No chest pain shortness of breath or abdominal pain or injury to his extremities. Related Data Home Medications ?Medication ?Instructions ?Recorded ?Confirmed hydrocortisone 2.5 % topical cream 1 applic topical BID 11/19/22 03/05/24 albuterol sulfate 90 mcg/actuation 2 puff inhalation Q4H PRN 03/05/24 03/05/24 aerosol inhaler shortness of breath or wheezing cyanocobalamin (vitamin B-12) 1,000 mcg PO DAILY 03/05/24 03/05/24 1,000 mcg sublingual tablet levothyroxine 50 mcg tablet 50 mcg PO DAILY 03/05/24 03/05/24 Previous Rx's ?Medication ?Instructions ?Recorded folic acid 1 mg tablet 1,000 mcg PO DAILY #30 tabs 01/27/24 magnesium oxide 400 mg PO BID 5 days #10 tabs 03/05/24 potassium chloride 20 mEq 20 meq PO DAILY 7 days #7 tabs 03/05/24 tablet,extended release(part/cryst) Allergies Allergy/AdvReac Type Severity Reaction Status Date / Time No Known Drug Allergies Allergy Verified 04/03/24 23:34 Opioid HPI Opioid Management Most Recent Opioid Data: Last Pain Scale 0 01/26/24 18:44 01/26/24 Last ORT Total Score 3 01/26/24 22:56 01/26/24 Last ORT Risk Category Low Risk 01/26/24 22:56 01/26/24 Review of Systems ROS Narrative A ten point review of systems is negative except as noted above. PFSH [facility] Medical History (Updated 04/04/24 @ 00:56 by Kristian Juarez) Megaloblastic anemia due to alcoholism ?D53.1 - Other megaloblastic anemias, not elsewhere classified (ICD-10) Memory impairment of gradual onset ?R41.3 - Other amnesia (ICD-10) Alcohol induced fatty liver ?K70.0 - Alcoholic fatty liver (ICD-10) Ataxic gait ?R26.0 - Ataxic gait (ICD-10) Colitis ?K52.9 - Noninfective gastroenteritis and colitis, unspecified (ICD-10) History of alcohol abuse ?F10.11 - Alcohol abuse, in remission (ICD-10) Altered mental status ?R41.82 - Altered mental status, unspecified (ICD-10) Dizziness ?R42 - Dizziness and giddiness (ICD-10) Hypertension ?I10 - Essential (primary) hypertension (ICD-10) Current smoker ?F17.200 - Nicotine dependence, unspecified, uncomplicated (ICD-10) COPD with emphysema ?J43.9 - Emphysema, unspecified (ICD-10) Alcohol use disorder ?F10.90 - Alcohol use, unspecified, uncomplicated (ICD-10) Social History (Updated 01/27/24 @ 11:46 by Shaikh Yahir MD) Within the past year, how often did you have a drink containing alcohol: 4 or more times a week Within the past year, how many standard drinks containing alcohol did you have on a typical day: 7 to 9 Within the past year, how often did you have six or more drinks on one occasion: daily or almost daily Total score: 10 Score interpretation: A score of 4 or more indicates drinking is likely to affect patient's safety. Smoking status: Current every day smoker Non-prescribed substance use: denies use Highest level of school completed/degree received: high school graduate Little interest or pleasure in doing things: not at all Feeling down, depressed, or hopeless: not at all Exam Narrative Exam Narrative: Nurses note and vital signs reviewed and patient is not hypoxic. General: The patient appears well and in no apparent distress. Patient is resting comfortably on cart. Skin: Warm, dry, no pallor noted. There is no rash noted. Head: Normocephalic, abrasion present across the bridge of his nose where there is some swelling. No epistaxis or active bleeding. He has a tiny abrasion above his left eye. Eye: Normal conjunctiva, no drainage Ears, Nose, Mouth, and Throat: oral mucosa is moist. Nares patent. Cardiovascular: Regular Rate and Rhythm Respiratory: Patient is in no distress, no accessory muscle use, lungs are clear to auscultation, no wheezing, rales or rhonchi Back: non-tender GI: Soft and nontender Musculoskeletal: All joints have full range of motion Neurological: A&O x4, normal speech he moves all 4 extremities well Psychiatric: Cooperative Discharge Plan Discharge Chief Complaint: Fall Prescriptions / Home Meds: No Action hydrocortisone 2.5 % cream 1 applic TOPICAL BID albuterol sulfate 90 mcg/actuation HFA aerosol inhaler 2 puff INHALATION Q4H PRN (Reason: shortness of breath or wheezing) cyanocobalamin (vitamin B-12) 1,000 mcg tablet, sublingual 1,000 mcg PO DAILY levothyroxine 50 mcg tablet 50 mcg PO DAILY magnesium oxide 400 mg magnesium tablet 400 mg PO BID 5 Days Qty: 10 0RF potassium chloride 20 mEq tablet,ER particles/crystals 20 meq PO DAILY 7 Days Qty: 7 0RF folic acid 1 mg tablet 1,000 mcg PO DAILY Qty: 30 0RF Print Language: Turkish Referrals: Julio C Reyes MD [Primary Care Provider] - 1 week
--- NOTE | 2024-04-23 17:34 | PC.NURSE ---
Arrives by EMS with c-collar in place. Alert to person, has history of dementia. Denies pain. Abrasion above left eye and across bridge of nose. Abrasions cleansed with Hibicleanse and open to air.
[2024-04-23] MEDS: ADACEL DIPH,PERTUSS(ACELL),TET VAC/PF 0.5 ML ADULT SYRINGE IM (17:45)
--- NOTE | 2024-04-23 17:56 | CT_ITS ---
[address] [address] Patient Name: LUDIVINA LÓPEZ MRN: [id number] date: 1960 Sex: M Assigned Patient Location: ER Current Patient Location: Accession/Order Number: [id number] Exam Date: 04/23/2024 17:48 Report Date: 04/23/2024 18:17 At the request of: MEGA PANG Procedure: CT head/brain wo con EXAM: Head, facial bones and cervical spine CTs performed without contrast. Dose reduction technique used: Automated exposure control and/or adjustment of the mA and/or kV according to patient size and/or use of iterative reconstruction technique. REASON FOR EXAM: Fall, head injury COMPARISON: CT scan dated 03/05/2024 FINDINGS: HEAD: No intracranial hemorrhage, mass effect, midline shift, fractures or evidence of acute ischemic infarct. No hydrocephalus. Small anterior frontal scalp hematoma. Old left thalamic lacunar infarct. Mild to moderate generalized cerebral and cerebellar volume loss. Mild to moderate small vessel gliosis. FACIAL BONES: Acute right nasal bone fracture. No other acute facial bone or paranasal sinus fractures. Bilateral orbits are intact. No mandible fracture or dislocation. Bilateral globes are grossly intact. No orbital hematoma or inflammatory changes. Small amount fluid/secretions in the right maxillary sinus. Multiple dental erosions. Right mandible periapical abscess. C-SPINE: No fractures, dislocations or acute malalignment of the cervical spine. Cervical spine degenerative changes with multilevel bilateral moderate and severe neural foraminal stenoses. Mild retrolisthesis of C3 on C4 on a degenerative basis. Mild anterolisthesis of C4 on C5. Mild retrolisthesis of C5 on C6. Multilevel mild and moderate spinal canal stenoses. Centrilobular emphysema in both lungs. Remainder unremarkable. CT/CT head/brain wo con IMPRESSION: 1. No acute intracranial or cervical spine abnormalities. 2. Acute right nasal bone fracture. 3. No other acute facial bone abnormalities. Electronically authenticated by: DILEEP MARTINEZ Date: 04/23/2024 18:17
--- NOTE | 2024-04-23 17:56 | CT_ITS ---
[address] [address] Patient Name: LUDIVINA LÓPEZ MRN: [id number] date: 1960 Sex: M Assigned Patient Location: ER Current Patient Location: Accession/Order Number: [id number] Exam Date: 04/23/2024 17:48 Report Date: 04/23/2024 18:17 At the request of: MEGA PANG Procedure: CT facial bones wo con EXAM: Head, facial bones and cervical spine CTs performed without contrast. Dose reduction technique used: Automated exposure control and/or adjustment of the mA and/or kV according to patient size and/or use of iterative reconstruction technique. REASON FOR EXAM: Fall, head injury COMPARISON: CT scan dated 03/05/2024 FINDINGS: HEAD: No intracranial hemorrhage, mass effect, midline shift, fractures or evidence of acute ischemic infarct. No hydrocephalus. Small anterior frontal scalp hematoma. Old left thalamic lacunar infarct. Mild to moderate generalized cerebral and cerebellar volume loss. Mild to moderate small vessel gliosis. FACIAL BONES: Acute right nasal bone fracture. No other acute facial bone or paranasal sinus fractures. Bilateral orbits are intact. No mandible fracture or dislocation. Bilateral globes are grossly intact. No orbital hematoma or inflammatory changes. Small amount fluid/secretions in the right maxillary sinus. Multiple dental erosions. Right mandible periapical abscess. C-SPINE: No fractures, dislocations or acute malalignment of the cervical spine. Cervical spine degenerative changes with multilevel bilateral moderate and severe neural foraminal stenoses. Mild retrolisthesis of C3 on C4 on a degenerative basis. Mild anterolisthesis of C4 on C5. Mild retrolisthesis of C5 on C6. Multilevel mild and moderate spinal canal stenoses. Centrilobular emphysema in both lungs. Remainder unremarkable. CT/CT facial bones wo con IMPRESSION: 1. No acute intracranial or cervical spine abnormalities. 2. Acute right nasal bone fracture. 3. No other acute facial bone abnormalities. Electronically authenticated by: DILEEP MARTINEZ Date: 04/23/2024 18:17
--- NOTE | 2024-04-23 17:56 | CT_ITS ---
[address] [address] Patient Name: LUDIVINA LÓPEZ MRN: [id number] date: 1960 Sex: M Assigned Patient Location: ER Current Patient Location: Accession/Order Number: [id number] Exam Date: 04/23/2024 17:48 Report Date: 04/23/2024 18:17 At the request of: MEGA PANG Procedure: CT cervical spine wo con EXAM: Head, facial bones and cervical spine CTs performed without contrast. Dose reduction technique used: Automated exposure control and/or adjustment of the mA and/or kV according to patient size and/or use of iterative reconstruction technique. REASON FOR EXAM: Fall, head injury COMPARISON: CT scan dated 03/05/2024 FINDINGS: HEAD: No intracranial hemorrhage, mass effect, midline shift, fractures or evidence of acute ischemic infarct. No hydrocephalus. Small anterior frontal scalp hematoma. Old left thalamic lacunar infarct. Mild to moderate generalized cerebral and cerebellar volume loss. Mild to moderate small vessel gliosis. FACIAL BONES: Acute right nasal bone fracture. No other acute facial bone or paranasal sinus fractures. Bilateral orbits are intact. No mandible fracture or dislocation. Bilateral globes are grossly intact. No orbital hematoma or inflammatory changes. Small amount fluid/secretions in the right maxillary sinus. Multiple dental erosions. Right mandible periapical abscess. C-SPINE: No fractures, dislocations or acute malalignment of the cervical spine. Cervical spine degenerative changes with multilevel bilateral moderate and severe neural foraminal stenoses. Mild retrolisthesis of C3 on C4 on a degenerative basis. Mild anterolisthesis of C4 on C5. Mild retrolisthesis of C5 on C6. Multilevel mild and moderate spinal canal stenoses. Centrilobular emphysema in both lungs. Remainder unremarkable. CT/CT cervical spine wo con IMPRESSION: 1. No acute intracranial or cervical spine abnormalities. 2. Acute right nasal bone fracture. 3. No other acute facial bone abnormalities. Electronically authenticated by: DILEEP MARTINEZ Date: 04/23/2024 18:17
[2024-04-23] MEDS: BACITRACIN 0.9 GM PACKET 1 PACKET TOPICAL (18:38)
--- NOTE | 2024-04-23 19:50 | ED.FALL1 ---
HPI HPI - Fall General Chief Complaint: Fall Stated Complaint: fall Time Seen by Provider: 04/23/24 17:27 Source: patient Mode of arrival: ambulance History of Present Illness HPI Narrative: This 63-year-old male with a history of dementia was signed out to me at shift change pending return to the extended care facility where he resides. The patient had a fall and injured his nose. CT scans were ordered and are negative. He has been ambulatory in the emergency department although is confused about his whereabouts. He is stable for discharge and will be returned to the extended care facility at this time. Related Data Home Medications ?Medication ?Instructions ?Recorded ?Confirmed acetaminophen 325 mg tablet 650 mg PO Q6H PRN fever or pain 04/23/24 04/23/24 (Tylenol) aluminum-mag hydroxide-simethicone 5 ml PO Q3H PRN GI bleeding 04/23/24 04/23/24 200 mg-200 mg-20 mg/5 mL oral susp prophylaxis (Antacid Anti-Gas) levetiracetam 500 mg tablet 500 mg PO BID 04/23/24 04/23/24 multivitamin (Daily Multi-Vitamin 1 tab PO DAILY 04/23/24 04/23/24 tablet) nicotine 14 mg/24 hr daily 1 patch transdermal DAILY 04/23/24 04/23/24 transdermal patch thiamine HCl (vitamin B1) 100 mg 100 mg PO DAILY 04/23/24 04/23/24 capsule Previous Rx's ?Medication ?Instructions ?Recorded folic acid 1 mg tablet 1,000 mcg PO DAILY #30 tabs 01/27/24 Allergies Allergy/AdvReac Type Severity Reaction Status Date / Time No Known Drug Allergies Allergy Verified 04/23/24 17:37 Opioid HPI Opioid Management Most Recent Pain and Opioid Data: Last Pain Scale 0 01/26/24 18:44 01/26/24 Last ORT Total Score 3 01/26/24 22:56 01/26/24 Last ORT Risk Category Low Risk 01/26/24 22:56 01/26/24 [facility] Medical History (Updated 04/23/24 @ 19:50 by Heather Boston MD) Megaloblastic anemia due to alcoholism ?D53.1 - Other megaloblastic anemias, not elsewhere classified (ICD-10) Memory impairment of gradual onset ?R41.3 - Other amnesia (ICD-10) Alcohol induced fatty liver ?K70.0 - Alcoholic fatty liver (ICD-10) Ataxic gait ?R26.0 - Ataxic gait (ICD-10) Colitis ?K52.9 - Noninfective gastroenteritis and colitis, unspecified (ICD-10) History of alcohol abuse ?F10.11 - Alcohol abuse, in remission (ICD-10) Altered mental status ?R41.82 - Altered mental status, unspecified (ICD-10) Dizziness ?R42 - Dizziness and giddiness (ICD-10) Hypertension ?I10 - Essential (primary) hypertension (ICD-10) Current smoker ?F17.200 - Nicotine dependence, unspecified, uncomplicated (ICD-10) COPD with emphysema ?J43.9 - Emphysema, unspecified (ICD-10) Alcohol use disorder ?F10.90 - Alcohol use, unspecified, uncomplicated (ICD-10) Social History (Updated 01/27/24 @ 11:46 by Shaikh Yahir MD) Within the past year, how often did you have a drink containing alcohol: 4 or more times a week Within the past year, how many standard drinks containing alcohol did you have on a typical day: 7 to 9 Within the past year, how often did you have six or more drinks on one occasion: daily or almost daily Total score: 10 Score interpretation: A score of 4 or more indicates drinking is likely to affect patient's safety. Smoking status: Current every day smoker Non-prescribed substance use: denies use Highest level of school completed/degree received: high school graduate Little interest or pleasure in doing things: not at all Feeling down, depressed, or hopeless: not at all Exam Constitutional Vital Signs, click to edit/add: Last Vital Signs Temp 98.0 F 04/23/24 17:28 Pulse 83 04/23/24 17:28 Resp 16 04/23/24 17:28 BP 164/96 H 04/23/24 17:28 Pulse Ox 100 04/23/24 17:28 O2 Del Method Room Air 04/23/24 17:28 Course Vital Signs Vital signs: Vital Signs Temperature 98.0 F 04/23/24 17:28 Pulse Rate 83 04/23/24 17:28 Respiratory Rate 16 04/23/24 17:28 Blood Pressure 164/96 H 04/23/24 17:28 Pulse Oximetry 100 04/23/24 17:28 Oxygen Delivery Method Room Air 04/23/24 17:28 Temperature 98.0 F 04/23/24 17:28 Pulse Rate 83 04/23/24 17:28 Respiratory Rate 16 04/23/24 17:28 Blood Pressure 164/96 H 04/23/24 17:28 Pulse Oximetry 100 04/23/24 17:28 Oxygen Delivery Method Room Air 04/23/24 17:28 Discharge Plan Discharge Chief Complaint: Fall Clinical Impression: Contusion of nose, initial encounter, Fall from standing Patient Disposition: Home, Self-Care Time of Disposition Decision: 19:49 Condition: Good Prescriptions / Home Meds: No Action folic acid 1 mg tablet 1,000 mcg PO DAILY Qty: 30 0RF acetaminophen [Tylenol] 325 mg tablet 650 mg PO Q6H PRN (Reason: fever or pain) levetiracetam 500 mg tablet 500 mg PO BID alum-mag hydroxide-simeth [Antacid Anti-Gas] 200-200-20 mg/5 mL suspension 5 ml PO Q3H PRN (Reason: GI bleeding prophylaxis) nicotine 14 mg/24 hr patch 24 hour 1 patch transdermal DAILY multivitamin [Daily Multi-Vitamin] Tablet 1 tab PO DAILY thiamine HCl (vitamin B1) 100 mg capsule 100 mg PO DAILY Print Language: Paraguayan Instructions: Fall Prevention for Older Adults (ED), Contusion in Adults (ED), Nasal Contusion (ED) Referrals: Julio C Reyes MD [Primary Care Provider] - 1 week
== END 2024-04-23 20:10 | disposition home or self-care (01) ==
PROVIDERS: Emergency Provider Emergency Medicine; PCP Family Medicine
DX: S02.2XXA Fracture of nasal bones, initial encounter for closed fracture (principal); F17.200 Nicotine dependence, unspecified, uncomplicated; W19.XXXA Unspecified fall, initial encounter; F03.90 Unspecified dementia, unspecified severity, without behavioral disturbance, psychotic disturbance, mood disturbance, and anxiety; Z23 Encounter for immunization; S00.31XA Abrasion of nose, initial encounter; S00.212A Abrasion of left eyelid and periocular area, initial encounter
CPT/HCPCS: 70450; 70486; 72125; 90471; 90715; 99284

== ENCOUNTER 2024-09-23 19:45 | Emergency (ER) | payer MEDICAID, SELFPAY ==
--- OUTSIDE RECORDS SUMMARY | 2022-01-25 11:30 | XMS_ITS | Continuity of Care Document ---
Author Organization [facility] Address [address] [place] [address] Phone Care Team Providers Care Wringer Operator Name Role Phone Visci DO Jean Claude RYDER Unavailable Unavailable Procedures Procedure Date COVID-19 Antigen Test Advance Directives Directive Yes / No Effective Date File Name No Information Encounters Encounter Description Practice Location Reason(s) For Visit Diagnoses Date Provider Providers Copied on Encounter [facility], [address], [place], [id number], [place] tel:[phone] COVID [facility] No Information Visci Jean Claude. [address], [place], [id number], [place]. tel:[phone] Family History Family Member Type Diagnosis Age At Onset No Information Payers Payer name Insurance type Covered democrat ID Authoriza tion(s) No Information Social History Type Description Quantity Date Captured Comments Alcohol Use Details Unknown Caffeine Use Details Unknown Tobacco Use Status No Information Smoking Status No Information Sex Male Sexual Orientation Don't Know Gender Identity Male Chief Complaint And Reason For Visit No Information Reason For Referral Reason For Referral No Information Plan Of Treatment Date Type Action Status Goal Colonoscopy. Due on 022 due Goal FOBT. Due on due Goal Tdap. Due on due Goal Influenza vaccine. Due on Oc due Goal Depression screening. Due on due Goal PRAPARE ASSESSMENT. Due on O due Goal Zoster vaccine (1st). Due on due Goal Lipid panel. Due on 022 due History Of Present Illness Encounter Date Complaint History Of Prese nt Illness No Information Functional Status Date Functional Assessmen t No Information Instructions Date Instruction Additional Infor mation No Information Assessments Type Assessment Date No Information Patient Care Teams Name Effective Dates (start - stop) Status Members No Information
[2024-09-23] VITALS (26 sets, daily range): BP systolic 134–178; BP diastolic 77–111; PULSE 58–83; TEMP 36.4; O2SAT 86–100; BMI 18.7
--- OUTSIDE RECORDS SUMMARY | 2024-09-23 19:53 | XMS_ITS | Clinical Summary ---
Author Organization [facility] Address [id number] [address] [place] [address] Care Team Providers Care [employer] Name Role Phone Unavailable Primary Care Provider Unavailabl e Active Problems Problem Noted Date Diagnosed Date Essential hypertension, benign 05/05/2024 Other seizures 05/05/2024 Anemia 05/05/2024 Cigarette smoker 04/19/2024 Alcohol-induced persisting dementia COPD (chronic obstructive pulmonary disease) Hypokalemia Social History Tobacco Use Types Packs/Day Years Used Date Smoking Tobacco: Every Day Cigarettes 1 46.5 Started: 04/10/1978 Tobacco Cessation:Ready to Q uit: Not Asked; Counseling Given: Not Answered Alcohol Use Standard Drinks/Week Comments Yes 70 (1 standard drink = 0.6 oz pu re alcohol) Childcare Answer Date Recorded Childcare Unknown 09/17/2018 Employment Answer Date Recorded Employment Unknown 09/17/2018 Purpose - Life Answer Date Recorded Purpose and direction in life Unknown Sex and Gender Information Value Date Recorded Sex Assigned at Not on file Legal Sex Male 4:08 PM EDT Gender Identity Not on file Sexual Orientation Not on file Last Filed Vital Signs Vital Sign Reading Time Taken Comments Blood Pressure 122/76 05/07/2024 8:20 PM EST Pulse 78 05/07/2024 8:20 PM EST Temperature 36.7 C (98 F) 05/07/2024 8:20 PM EST Respiratory Rate 17 05/07/2024 8:20 PM EST Oxygen Saturation 98% 05/07/2024 8:20 PM EST Inhaled Oxygen Concentration - - Weight 53.9 kg (118 lb 12.8 oz) 04/24/2024 6:56 PM EST Height - - Body Mass Index - - Plan of Treatment Health Maintenance Due Date Last Done Comments Tobacco Counseling 1960 Depression Screening 1972 Tobacco Screening 1972 Adult BMI Screening 1978 DTaP,Tdap and Td Vaccines (1 - Tdap) 11/29/1979 Zoster (Shingles) Vaccine (1 of 2) 2010 Influenza Vaccine 12/09/2024 Medical Devices Not on file
--- NOTE | 2024-09-23 21:04 | PC.NURSE ---
this patient complains of dizziness on and off for a couple months but the past 4 or 5 days dizziness all of the time
--- NOTE | 2024-09-23 21:11 | ECG_ITS ---
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
--- NOTE | 2024-09-23 21:11 | CT_ITS ---
The [address] [address] Patient Name: LUDIVINA LÓPEZ MRN: [id number] date: 1960 Sex: M Assigned Patient Location: ED.MAIN Current Patient Location: ED.MAIN Accession/Order Number: [id number] Exam Date: 09/23/2024 22:32 Report Date: 09/23/2024 22:36 At the request of: MARILUZ FRIEDMAN MD Procedure: CT head/brain wo con CT head/brain wo con 09/23/2024 9:54 PM SIGNS AND SYMPTOMS: ^dizziness TECHNIQUE:Multi-detector CT axial slices of the brain were obtained without IV contrast. CT was performed with one or more of the following dose reduction techniques: Automated exposure control, adjustment of the mA and/or kV according to patient size, or use of iterative reconstruction technique. COMPARISON: 04/23/2024 FINDINGS: There is no shift of the midline structures, acute intracranial bleeding, mass effects, or evidence of acute ischemia. Remote lacunar infarcts are noted in the deep blanca nuclei with a new focus of hypoattenuation along the anterior and lateral margin of the thalamus on the right which may be subacute or remote. Atherosclerotic changes are noted in the intracranial segments of the internal carotid arteries. Periventricular white matter hypoattenuation is noted. Atherosclerotic changes are noted in the intracranial segments of the internal carotid arteries. The ventricular system is normal in size. The brainstem and the cerebellum are unremarkable. The visualized intraorbital contents, the visualized paranasal sinuses, and the infratemporal soft tissues show no acute abnormality. The osseous structures in the skull base and the calvarium show no abnormality. CT/CT head/brain wo con IMPRESSION: No acute intracranial pathology. Remote lacunar infarcts are noted in the deep blanca nuclei with a new focus of hypoattenuation along the anterior and lateral margin of the thalamus on the right which may be subacute or remote. If there is ongoing clinical concern for acute or subacute ischemia, MRI would be more sensitive. Additional chronic age-related neurodegenerative changes are noted as above. Impression dictated by: Anand Wilkes M.D. 09/23/2024 10:36 PM Dictation Location: [place] [address] Electronically authenticated by: [id number] Y Date: 09/23/2024 22:36
--- NOTE | 2024-09-23 21:13 | ED.DIZZY1 ---
HPI - Dizziness General Chief Complaint: Dizziness Stated Complaint: dizzy Time Seen by Provider: 09/23/24 20:14 Source: patient Mode of arrival: Wheelchair Limitations: no limitations History of Present Illness HPI Narrative: This 63-year-old male with a history of alcohol induced dementia who was in a [facility] for several months at the end of last year and is currently living in a house with a woman who has been taking care of him for the past 6 months is brought to the emergency department for evaluation of dizziness. The patient has been having increased episodes of dizziness worse with movement for the past several weeks to months. He does not have a headache. He is not having neck pain. He has not had any recent falls. He has not been drinking since March. He has been eating and drinking but has to be reminded to eat and drink. He denies any urinary symptoms. He has no back pain. He has not had any weight loss. In emergency department he is not confused. He is moving all extremities. He has not had any change in his vision or speech. Related Data Home Medications ?Medication ?Instructions ?Recorded ?Confirmed levetiracetam 500 mg tablet 500 mg PO BID 04/23/24 09/23/24 multivitamin (Daily Multi-Vitamin 1 tab PO DAILY 04/23/24 09/23/24 tablet) nicotine 14 mg/24 hr daily 1 patch transdermal DAILY 04/23/24 04/23/24 transdermal patch thiamine HCl (vitamin B1) 100 mg 100 mg PO DAILY 04/23/24 09/23/24 capsule Previous Rx's ?Medication ?Instructions ?Recorded folic acid 1 mg tablet 1,000 mcg PO DAILY #30 tabs 01/27/24 Allergies Allergy/AdvReac Type Severity Reaction Status Date / Time No Known Drug Allergies Allergy Verified 09/23/24 19:59 Review of Systems ROS Status of ROS 10 or more systems reviewed and unremarkable except as noted in history and below [facility] Medical History (Updated 09/23/24 @ 23:22 by Heather Boston MD) Megaloblastic anemia due to alcoholism ?D53.1 - Other megaloblastic anemias, not elsewhere classified (ICD-10) Memory impairment of gradual onset ?R41.3 - Other amnesia (ICD-10) Alcohol induced fatty liver ?K70.0 - Alcoholic fatty liver (ICD-10) Ataxic gait ?R26.0 - Ataxic gait (ICD-10) Colitis ?K52.9 - Noninfective gastroenteritis and colitis, unspecified (ICD-10) History of alcohol abuse ?F10.11 - Alcohol abuse, in remission (ICD-10) Altered mental status ?R41.82 - Altered mental status, unspecified (ICD-10) Dizziness ?R42 - Dizziness and giddiness (ICD-10) Hypertension ?I10 - Essential (primary) hypertension (ICD-10) Current smoker ?F17.200 - Nicotine dependence, unspecified, uncomplicated (ICD-10) COPD with emphysema ?J43.9 - Emphysema, unspecified (ICD-10) Alcohol use disorder ?F10.90 - Alcohol use, unspecified, uncomplicated (ICD-10) Social History (Updated 01/27/24 @ 11:46 by Shaikh Yahir MD) Within the past year, how often did you have a drink containing alcohol: 4 or more times a week Within the past year, how many standard drinks containing alcohol did you have on a typical day: 7 to 9 Within the past year, how often did you have six or more drinks on one occasion: daily or almost daily Total score: 10 Score interpretation: A score of 4 or more indicates drinking is likely to affect patient's safety. Smoking status: Current every day smoker Non-prescribed substance use: denies use Highest level of school completed/degree received: high school graduate Little interest or pleasure in doing things: not at all Feeling down, depressed, or hopeless: not at all Exam Narrative Exam Narrative: Vital signs and Nursing Notes reviewed: Patient is afebrile with a normal pulse, blood pressure is elevated 143/87, he is not hypoxic with pulse ox of 98% on room air General: Awake, alert, oriented, no acute distress, lying comfortably on the stretcher-conversant with episodes of brief confusion, patient clarifies things with his menagerie caretaker HEENT: Normocephalic atraumatic, mucous membranes are moist and pink, multiple decayed and decaying teeth. Eyes are clear, normal conjunctiva, vision is grossly intact, posterior pharynx is normal in appearance. Tympanic membranes are normal bilaterally Neck: Supple, no meningeal signs, no JVD, no carotid bruits appreciated Chest: Lungs are clear to auscultation with good air entry, there is no wheezing rhonchi or rales appreciated no accessory muscle use, patient is speaking in complete sentences-no chest wall tenderness to palpation CVS: Regular rate and rhythm S1-S2, no murmurs rubs or gallops, pulses are brisk and equal bilaterally ABD: Soft, nondistended, nontender, no rebound guarding or rigidity, bowel sounds are normal, no pulsatile masses appreciated Extremities: Moving all extremities, no lower extremity tenderness or swelling noted, negative Homans' sign, pulses are brisk and equal bilaterally Skin: Normal in appearance without rash,pallor, petechiae or purpura Neuro: No focal deficits, speech is clear, bi specialist strength is intact, negative pronator drift, positive rapid alternating hand movements, upper and lower extremity strength and sensation is intact cognition is mostly intact with episodes of brief confusion Constitutional Vital Signs, click to edit/add: Last Vital Signs Temp 97.5 F L 09/23/24 19:55 Pulse 60 09/23/24 21:05 Resp 19 09/23/24 21:05 BP 143/87 H 09/23/24 21:05 Pulse Ox 98 09/23/24 21:05 O2 Del Method Room Air 09/23/24 19:55 Course Vital Signs Vital signs: Vital Signs Temperature 97.5 F L 09/23/24 19:55 Pulse Rate 69 09/23/24 19:55 Respiratory Rate 18 09/23/24 19:55 Blood Pressure 134/77 09/23/24 19:55 Pulse Oximetry 97 09/23/24 19:55 Oxygen Delivery Method Room Air 09/23/24 19:55 Temperature 97.5 F L 09/23/24 19:55 Pulse Rate 60 09/23/24 21:05 Respiratory Rate 19 09/23/24 21:05 Blood Pressure 143/87 H 09/23/24 21:05 Pulse Oximetry 98 09/23/24 21:05 Oxygen Delivery Method Room Air 09/23/24 19:55 MDM - Dizziness MDM Narrative Medical decision making narrative: This 63-year-old male with a history of alcohol related dementia is brought to the emergency department by his menagerie caretaker for evaluation of episodes of dizziness that have been present for the past weeks to months. He states his symptoms are worse with movement. He has not lost any weight. He does not have a headache. He has no focal neurologic symptoms related to his episodes of dizziness. He denies any chest pain or shortness of breath. He has a completely normal neurologic exam but does have episodes of difficulty remembering certain things that his menagerie caretaker/friend helps him remember. Routine labs were ordered. He has a normal white count and hemoglobin. Electrolytes are normal. Troponin is normal. Calcium and magnesium are normal. Urine is negative for acute findings. CT scan of the brain shows remote lacunar infarcts noted in the deep blanca nuclei with a new focus of hypoattenuation along the anterior and lateral margin of the thalamus on the right which may be subacute or remote. Otherwise the CT scan is normal. As previously stated the symptoms have been going on for the past week several weeks to months likely the findings on the CT scan are acute or subacute. I explained to him that he will likely need an MRI as an outpatient but at this time there is no indication for admission. The patient states he does not have a local family physician and will be given referral information for local providers accepting new patients. He did admit to me when his menagerie caretaker/friend had left the room that he does continue to drink but much less than he was drinking in the past. He also smokes 2 to 3 packs of cigarettes on a daily basis. Lab Data Labs: Lab Results 09/23/24 09/23/24 Range/Units 21:35 22:38 WBC 7.5 (4.0-11.0) 10^3/uL RBC 4.18 L (4.70-6.10) 10^6/uL Hgb 12.9 L (14.0-18.0) g/dL Hct 38.7 L (42.0-54.0) % MCV 92.6 (80.0-94.0) fL MCH 30.9 (25.9-34.0) pg MCHC 33.3 (29.9-35.2) g/dL RDW 14.5 (11.0-15.0) % Plt Count 261 (150-450) 10^3/uL MPV 9.4 L (9.5-13.5) fL Neut % (Auto) 56.0 (43.0-75.0) % Lymph % (Auto) 29.4 (20.5-60.0) % [place] % (Auto) 11.2 (1.7-12.0) % Eos % (Auto) 2.5 (0.9-7.0) % Baso % (Auto) 0.8 (0.2-2.0) % Neut # (Auto) 4.2 (1.4-6.5) 10^3/uL Lymph # (Auto) 2.2 (1.2-3.8) 10^3/uL [place] # (Auto) 0.8 (0.3-0.8) 10^3/uL Eos # (Auto) 0.2 (0.0-0.7) 10^3/uL Baso # (Auto) 0.1 (0.0-0.1) 10^3/uL Abs Immat Gran (auto) 0.01 (0.00-0.03) 10^3/uL Imm/Tot Granulo (auto) 0.1 (0.0-0.5) % Sodium 140 (136-145) mmol/L Potassium 4.9 (3.5-5.1) mmol/L Chloride 103 (98-107) mmol/L Carbon Dioxide 29.6 (21.0-32.0) mmol/L Anion Gap 12.3 BUN 21.0 H (7.0-18.0) mg/dL Creatinine 0.72 (0.70-1.30) mg/dL Est GFR ( Amer) >60 (>=60 mL/min/1.73m^2) Est GFR (Non-Af Amer) >60 (>=60 mL/min/1.73m^2) BUN/Creatinine Ratio 29.2 Glucose 90 (74-106) mg/dL Lactate 1.1 (0.4-2.0) mmol/L Calcium 9.0 (8.5-10.1) mg/dL Magnesium 1.9 (1.8-2.4) mg/dL Total Bilirubin 0.6 (0.2-1.0) mg/dL AST 19 (15-37) U/L ALT 21 (16-63) U/L Alkaline Phosphatase 93 (46-116) U/L Troponin I High Sens 4.6 (4.0-76.1) pg/mL Total Protein 6.9 (6.4-8.2) g/dL Albumin 3.6 (3.4-5.0) g/dL Globulin 3.3 g/dL Albumin/Globulin Ratio 1.1 Urine Color Lt. yellow (YELLOW) Urine Clarity Clear (CLEAR) Urine pH 7.0 (5.0-9.0) Ur Specific [place] 1.010 (1.005-1.025) Urine Protein Negative (NEG/TRACE) mg/dL Urine Glucose (UA) Negative (NEGATIVE) mg/dL Urine Ketones Negative (NEGATIVE) mg/dL Urine Occult Blood Negative (NEGATIVE) Urine Nitrite Negative (NEGATIVE) Urine Bilirubin Negative (NEGATIVE) Urine Urobilinogen 0.2 (0.2-1.0) EU/dL Ur Leukocyte Esterase Negative (NEGATIVE) Urine RBC None seen (0-2) #/HPF Urine WBC None seen (NONE SEEN) #/HPF Ur Squamous Epith Cells None seen (NONE/RARE) #/LPF Urine Crystals None seen (None Seen) #/HPF Urine Bacteria None seen (NONE SEEN) #/HPF Urine Casts None seen (NONE SEEN) #/LPF Urine Mucus None seen (NONE SEEN) Discharge Plan Discharge Chief Complaint: Dizziness Clinical Impression: Dizziness, Lacunar infarction Patient Disposition: Home, Self-Care Time of Disposition Decision: 23:22 Condition: Good Prescriptions / Home Meds: No Action folic acid 1 mg tablet 1,000 mcg PO DAILY Qty: 30 0RF levetiracetam 500 mg tablet 500 mg PO BID nicotine 14 mg/24 hr patch 24 hour 1 patch transdermal DAILY multivitamin [Daily Multi-Vitamin] Tablet 1 tab PO DAILY thiamine HCl (vitamin B1) 100 mg capsule 100 mg PO DAILY Print Language: Polish Instructions: Lightheadedness (ED), Dizziness (ED) Additional Instructions: Follow-up as an outpatient with recommendation for an MRI. Return to the emergency department for acute neurologic symptoms. Drink plenty of fluids. Continue your discontinuation of alcohol use. Referrals: Julio C Reyes MD [Primary Care Provider] - 1 week
[2024-09-23 21:56] LABS: Basophils Absolute Auto 0.1 10^3/uL (0.0-0.1); Basophils Percent Auto 0.8 % (0.2-2.0); Eosinophils Absolute Auto 0.2 10^3/uL (0.0-0.7); Eosinophils Percent Auto 2.5 % (0.9-7.0); Hematocrit 38.7 % (42.0-54.0); Hemoglobin 12.9 g/dL (14.0-18.0); Immature Granulocytes Abs Auto 0.01 10^3/uL (0.00-0.03); Immature Granulocytes Pct Auto 0.1 % (0.0-0.5); Lymphocytes Absolute Auto 2.2 10^3/uL (1.2-3.8); Lymphocytes Percent Auto 29.4 % (20.5-60.0); Mean Corpuscular HGB Conc 33.3 g/dL (29.9-35.2); Mean Corpuscular Hemoglobin 30.9 pg (25.9-34.0); Mean Corpuscular Volume 92.6 fL (80.0-94.0); Mean Platelet Volume 9.4 fL (9.5-13.5); Monocytes Absolute Auto 0.8 10^3/uL (0.3-0.8); Monocytes Percent Auto 11.2 % (1.7-12.0); Neutrophils Absolute Auto 4.2 10^3/uL (1.4-6.5); Platelet Count 261 10^3/uL (150-450); Red Blood Count 4.18 10^6/uL (4.70-6.10); Red Cell Distribution Width 14.5 % (11.0-15.0); White Blood Count 7.5 10^3/uL (4.0-11.0)
[2024-09-23 22:02] LABS: Anion Gap 12.3
[2024-09-23 22:05] LABS: Alanine Aminotransferase 21 U/L (16-63); Albumin Globulin Ratio 1.1; Albumin Level 3.6 g/dL (3.4-5.0); Alkaline Phosphatase 93 U/L (46-116); Aspartate Amino Transferase 19 U/L (15-37); BUN Creatinine Ratio 29.2; Bilirubin Total 0.6 mg/dL (0.2-1.0); Carbon Dioxide 29.6 mmol/L (21.0-32.0); Chloride 103 mmol/L (98-107); Estimated GFR (African America >60 (>=60 mL/min/1.73m^2); Estimated GFR (Non-African Ame >60 (>=60 mL/min/1.73m^2); Globulin 3.3 g/dL; Glucose 90 mg/dL (74-106); Lactate/Lactic Acid 1.1 mmol/L (0.4-2.0); Magnesium 1.9 mg/dL (1.8-2.4); Potassium 4.9 mmol/L (3.5-5.1); Sodium 140 mmol/L (136-145); Total Protein 6.9 g/dL (6.4-8.2); Troponin I High Sensitivity 4.6 pg/mL (4.0-76.1)
[2024-09-23] MEDS: 0.9 % SODIUM CHLORIDE 1,000 ML 1000 ML IV (22:11)
[2024-09-23 22:42] LABS: Bilirubin Urine NEGATIVE (NEGATIVE); Blood Urine NEGATIVE (NEGATIVE); Clarity Urine CLEAR (CLEAR); Color Urine LT. YELLOW (YELLOW); Glucose Urine UA NEGATIVE (NEGATIVE); Ketones Urine NEGATIVE (NEGATIVE); Leukocyte Esterase Urine NEGATIVE (NEGATIVE); Nitrite Urine NEGATIVE (NEGATIVE); Protein Urine NEGATIVE (NEG/TRACE); Urobilinogen Urine 0.2 EU/dL (0.2-1.0)
[2024-09-23 22:49] LABS: Bacteria Urine NONE SEEN #/HPF (NONE SEEN); RBC Urine NONE SEEN #/HPF (0-2); WBC Urine NONE SEEN #/HPF (NONE SEEN)
[2024-09-23 22:50] LABS: Cast Seen? NONE SEEN #/LPF (NONE SEEN); Crystals Seen? None Seen #/HPF (None Seen); Mucus Urine NONE SEEN (NONE SEEN); Squamous Epithelial Cell Urine NONE SEEN #/LPF (NONE/RARE)
== END 2024-09-23 23:58 | disposition home or self-care (01) ==
PROVIDERS: Emergency Provider Emergency Medicine; PCP Family Medicine
DX: I63.81 Other cerebral infarction due to occlusion or stenosis of small artery (principal); R42 Dizziness and giddiness; F10.97 Alcohol use, unspecified with alcohol-induced persisting dementia; F17.210 Nicotine dependence, cigarettes, uncomplicated
CPT/HCPCS: 36415; 70450; 80053; 81001; 83605; 83735; 84484; 85025; 93005; 99285